=== PATIENT | female | born 1945 | race Caucasian/White ===

== ENCOUNTER 2018-01-27 09:24 | Day surgery (SDC) | payer MEDICARE, OTHER ==
[~2018-01-27] VITALS: Ht 160 cm; Wt 173.7 kg
[~2018-01-27 09:24] MED LIST: ACULAR5 ML BOTHEYES; ALBU90OI6 PO; AMLO10 PO; ANAS1 PO; ASPI81CH PO; ASPI81EC PO; ATEN50 PO; AZIT500 PO; Acidophilus La100 GM PO; Budeprion Xl300 MG PO; CALCAVITDA PO; CARB50 PO; CELE200 PO; CYAN500 PO; DESV50 PO; DOXA1 PO; DOXA2 PO; ERGO400 PO; EZET10 PO; FENT100TP TOP; FENT50TP TOP; FENT75TP TOP; FERR325 PO; FISH1000 PO; FLUT.05NI; FOLI400 PO; FURO20 PO; Fish Oil 1,0001 EAC3 PO; Flovent 110 MCG12 GM; GABA300 PO; GABA600 PO; HYDACE10B PO; LANS30EC PO; LECITHIN PO; LEVSOD125 PO; LEVSOD88 PO; LISI20 PO; LOVA40 PO; LUMIGAN2.5 ML BOTHEYES; MEGE40T PO; METF500C PO; METO50ER PO; METPRE4DP; MULVITA PO; Norco 10-325 T1 EACH PO; OXYACE5T PO; OYSTER SHELL C1 EAC4 PO; Omeprazole20 M1 PO; PIOG45 PO; POTA10T PO; PYRI100 PO; RESTASIS MULTI5.5 ML BOTHEYES; Systane 0.3-0.1 EACH OP; UBID10 PO; UBID100 PO; VENL75ER PO; VITAMIN B122500 MC1 PO; ZINC15 PO
== END 2018-01-27 23:05 | disposition home or self-care (01) ==
LOC: ORSCMMR 09:24 → ORD 10:15 → ORSCMMR 10:30 → ORD 10:30 → ORSCMMR 23:05
PROVIDERS: Surgery
PROC: 0DB48ZX Excision of Esophagogastric Junction, Via Natural or Artificial Opening Endoscopic, Diagnostic (ICD-10-PCS; principal; 2018-01-27 10:30)
PROC: 0DBL8ZX Excision of Transverse Colon, Via Natural or Artificial Opening Endoscopic, Diagnostic (ICD-10-PCS; principal; 2018-01-27 10:30)
PROC: 0DB68ZX Excision of Stomach, Via Natural or Artificial Opening Endoscopic, Diagnostic (ICD-10-PCS; principal; 2018-01-27 10:30)
PROC: 0DBK8ZX Excision of Ascending Colon, Via Natural or Artificial Opening Endoscopic, Diagnostic (ICD-10-PCS; principal; 2018-01-27 10:30)
DX: Z86.010 Personal history of colon polyps (principal); K29.70 Gastritis, unspecified, without bleeding; D12.2 Benign neoplasm of ascending colon; D12.3 Benign neoplasm of transverse colon; K64.8 Other hemorrhoids; K57.30 Diverticulosis of large intestine without perforation or abscess without bleeding; K21.9 Gastro-esophageal reflux disease without esophagitis; Z12.11 Encounter for screening for malignant neoplasm of colon; Z87.891 Personal history of nicotine dependence; E11.9 Type 2 diabetes mellitus without complications; I10 Essential (primary) hypertension; E78.5 Hyperlipidemia, unspecified; E78.00 Pure hypercholesterolemia, unspecified; E03.9 Hypothyroidism, unspecified; E66.01 Morbid (severe) obesity due to excess calories; Z68.44 Body mass index [BMI] 60.0-69.9, adult; Z79.82 Long term (current) use of aspirin; Z79.899 Other long term (current) drug therapy
CPT/HCPCS: 82947; 88305; 88342; J2250; J3010; J7120

== ENCOUNTER 2019-02-01 12:15 | Day surgery (SDC) | payer MEDICARE, OTHER ==
[~2019-02-01] VITALS: Ht 154.9 cm; Wt 153.5 kg
[~2019-02-01 12:15] MED LIST changes: +Aspirin EC81 MG PO; +Fentanyl1 EAC2 TOP; +Norvasc10 MG PO
== END 2019-02-01 15:39 | disposition home or self-care (01) ==
LOC: ORSCSDS 12:15
PROVIDERS: Orthopaedic Surgery
PROC: 01N54ZZ Release Median Nerve, Percutaneous Endoscopic Approach (ICD-10-PCS; principal; 2019-02-01 13:30)
DX: G56.02 Carpal tunnel syndrome, left upper limb (principal); I10 Essential (primary) hypertension; E11.9 Type 2 diabetes mellitus without complications; J44.9 Chronic obstructive pulmonary disease, unspecified; G47.33 Obstructive sleep apnea (adult) (pediatric); Z87.891 Personal history of nicotine dependence; K21.9 Gastro-esophageal reflux disease without esophagitis; E66.01 Morbid (severe) obesity due to excess calories; Z68.43 Body mass index [BMI] 50.0-59.9, adult; Z79.899 Other long term (current) drug therapy; Z79.82 Long term (current) use of aspirin
CPT/HCPCS: 82947; J0690; J2250; J7120

== ENCOUNTER → 2019-03-05 | Outpatient (CLI) | payer MEDICARE, OTHER | END | disposition home or self-care (01) | LOC: LAB EV 15:45 → LAB SHORT 15:45 | DX: R35.0 Frequency of micturition (principal) | CPT/HCPCS: 87077; 87086; 87186 ==

== ENCOUNTER → 2019-04-09 | Outpatient (CLI) | payer MEDICARE, OTHER | END | disposition home or self-care (01) | LOC: LAB → LAB SHORT 04-09 18:50 → LAB FUT 04-09 18:50 | DX: R30.9 Painful micturition, unspecified (principal) | CPT/HCPCS: 87086 ==

== ENCOUNTER → 2020-06-16 | Outpatient (CLI) | payer MEDICARE, OTHER ==
[2020-06-16 15:01] LABS: Source, Urine Clean Catch
[2020-06-16 16:48] LABS: Appearance, Urine Clear (Clear); Bilirubin, Urine Neg (Neg); Blood, Urine Neg (Neg); Color, Urine Yellow (P-Yellow); Glucose Qualitative, Urine Neg (Neg); Ketones, Urine Neg (Neg); Leukocyte Esterase, Urine Neg (Neg); Nitrite, Urine Neg (Neg); Protein, Urine Neg (Neg); Specific Gravity, Urine 1.015 (1.003-1.022); Urobilinogen, Urine NORM (Normal)
== END ==
LOC: LAB SHORT 14:58
PROVIDERS: Physician Assistant
DX: N39.0 Urinary tract infection, site not specified (principal)
CPT/HCPCS: 81003

== ENCOUNTER → 2020-07-17 | Outpatient (CLI) | payer MEDICARE, OTHER ==
[2020-07-17 13:03] LABS: Appearance, Urine Clear (Clear); Bilirubin, Urine Neg (Neg); Blood, Urine Neg (Neg); Color, Urine Yellow (P-Yellow); Glucose Qualitative, Urine Neg (Normal); Ketones, Urine Neg (Neg); Leukocyte Esterase, Urine Neg (Neg); Nitrite, Urine Neg (Neg); Protein, Urine Neg (Neg); Urobilinogen, Urine NORM (Normal)
== END | disposition home or self-care (01) ==
LOC: LAB EV 02:35
PROVIDERS: Physician Assistant
DX: R39.15 Urgency of urination (principal)
CPT/HCPCS: 81003; 87077; 87086; 87186

== ENCOUNTER → 2020-09-05 | Outpatient (CLI) | payer MEDICARE, OTHER | END | disposition home or self-care (01) | LOC: LAB EV 17:36 → LAB SHORT 17:36 | DX: L03.011 Cellulitis of right finger (principal) | CPT/HCPCS: 87070; 87075; 87205 ==

== ENCOUNTER 2023-01-13 11:00 | Day surgery (SDC) | payer MEDICARE, OTHER ==
[~2023-01-13] VITALS: Ht 154.9 cm; Wt 149.5 kg
[2023-01-13] MEDS ORDERED: GEMTESA75 MG PO (12:02)
[2023-01-13] MEDS ORDERED: TOPI50 PO (12:03)
--- NOTE | 2023-01-13 12:15 | NUR ---
01/13/23 1215 Melvi Velasquez [address] PL[address]GET AT 1200
[2023-01-13 13:59] VITALS: BP 140/80
== END 2023-01-13 14:00 | disposition home or self-care (01) ==
LOC: ORSCSDS 11:00
PROVIDERS: Ophthalmology
PROC: 08RJ3JZ Replacement of Right Lens with Synthetic Substitute, Percutaneous Approach (ICD-10-PCS; principal; 2023-01-13 13:00)
DX: E11.36 Type 2 diabetes mellitus with diabetic cataract (principal); H25.11 Age-related nuclear cataract, right eye; G47.33 Obstructive sleep apnea (adult) (pediatric); I10 Essential (primary) hypertension; F32.A Depression, unspecified; R32 Unspecified urinary incontinence; E78.5 Hyperlipidemia, unspecified; R60.0 Localized edema; K21.9 Gastro-esophageal reflux disease without esophagitis; E66.01 Morbid (severe) obesity due to excess calories; Z68.44 Body mass index [BMI] 60.0-69.9, adult; Z79.899 Other long term (current) drug therapy
CPT/HCPCS: 82947; J2250; J3010; J3301; J7040; V2632

== ENCOUNTER 2023-01-27 11:37 | Day surgery (SDC) | payer MEDICARE, OTHER | END 2023-01-27 13:52 | disposition home or self-care (01) | LOC: ORSCSDS 11:37 | PROC: 08RK3JZ Replacement of Left Lens with Synthetic Substitute, Percutaneous Approach (ICD-10-PCS; principal; 2023-01-27) | DX: E11.36 Type 2 diabetes mellitus with diabetic cataract (principal); H25.12 Age-related nuclear cataract, left eye; Z96.1 Presence of intraocular lens; G47.33 Obstructive sleep apnea (adult) (pediatric); K21.9 Gastro-esophageal reflux disease without esophagitis; E66.01 Morbid (severe) obesity due to excess calories; Z68.44 Body mass index [BMI] 60.0-69.9, adult; Z79.899 Other long term (current) drug therapy ==

== ENCOUNTER 2023-04-08 19:32 | Inpatient (IN) | payer MEDICARE, OTHER ==
[~2023-04-08] VITALS: Ht 154.9 cm; Wt 153.1 kg
[~2023-04-08 19:32] MED LIST changes: +GEMTESA75 MG PO; +TOPI50 PO
[2023-04-08 20:39] LABS: Source, Urine Straight Cath
[2023-04-08 21:09] LABS: Bilirubin, Urine Neg (Neg); Blood, Urine 2+ (Neg); Glucose Qualitative, Urine Neg (Neg); Ketones, Urine Neg (Neg); Leukocyte Esterase, Urine 3+ (Neg); Nitrite, Urine Neg (Neg); Protein, Urine 2+ (Neg); Urobilinogen, Urine NORM (Normal)
[2023-04-08 21:22] LABS: Appearance, Urine Hazy (Clear); Color, Urine Yellow (P-Yellow)
[2023-04-08 21:23] LABS: Bacteria Mod /hpf; Squamous Epithelial Cells Rare /hpf (Few)
[2023-04-08 21:47] LABS: BASOPHILS ABSOLUTE AUTO 0.03 K/mm3 (0.00-0.23); BASOPHILS PERCENT AUTO 0 % (0-2); EOSINOPHILS ABSOLUTE AUTO 0.09 K/mm3 (0.00-0.68); EOSINOPHILS PERCENT AUTO 1 % (0-6); Hematocrit 39.4 % (33.0-51.0); Hemoglobin 12.6 g/dL (11.5-16.0); IMMATURE GRAN ABSOLUTE AUTO 0.03 K/mm3 (0.00-0.10); IMMATURE GRAN PERCENT AUTO 0 % (0-1); LYMPHOCYTES ABSOLUTE AUTO 0.74 K/mm3 (0.84-5.20); LYMPHOCYTES PERCENT AUTO 8 % (21-46); MONOCYTES ABSOLUTE AUTO 0.55 K/mm3 (0.16-1.47); MONOCYTES PERCENT AUTO 6 % (4-13); Mean Corpuscular Volume 94 fL (80-100); Mean Platelet Volume 9.4 fL (9.1-12.4); NEUTROPHILS ABSOLUTE AUTO 7.41 K/mm3 (1.96-9.15); NEUTROPHILS PERCENT AUTO 84 % (41-73); Platelet Count 179 K/mm3 (150-400); RDW Coefficient Variation 13.7 % (11.7-14.2); RDW Standard Deviation 47.3 fL (35.1-46.3); White Blood Cell Count 8.85 K/mm3 (4.00-11.30)
[2023-04-08 22:09] LABS: Albumin/Globulin Ratio 0.4 (0.8-1.8); Bilirubin, Total 0.7 mg/dL (0.1-1.0); Calcium, Blood 8.5 mg/dL (8.5-10.1); Creatinine, Blood 1.24 mg/dL (0.40-1.00); Globulin, Blood 5.2 g/dL (2.2-4.0); Potassium, Blood 3.7 mmol/L (3.5-5.5); Total Protein, Blood 7.2 g/dL (6.4-8.2)
[2023-04-09 00:34] VITALS: BP 125/76
--- NOTE | 2023-04-09 02:18 | NUR ---
PT ARRIVED AT THE FLOOR AT 0015. PT TRANSFERED WITH ASSISTANCE FROM 5 CAREGIVERS USING THE SLIDE SHEET. PT ADMITTED FOR UTI AND INCREASED WEAKNESS. PT PLEASANT AND COOPERATIVE WITH CARE PROVIDED, A&O x4. VSS, PT ON RA. RESP RATE EVEN AND UNLABORED. PT W/C BOUND AT BASELINE. SKIN ASSESSMENT COMPLETED, DRY LOWER EXTREMITIES DARK PURPLE VENOUS INSUFFICIENCY, POOR CIRCULATION. NO OPEN WOUNDS/SORES NOTED. REDNESS TO PANNUS AND GROIN, AREA WAS CLEANED AND A TOWEL WAS PLACED TO PREVENT SKIN BREAKDOWN AND IRRITATION. CALL LIGHT WITHIN REACH, WCTM.
[2023-04-09 05:18] LABS: Hematocrit 38.4 % (33.0-51.0); Hemoglobin 12.8 g/dL (11.5-16.0); Mean Corpuscular HGB 30.5 pg (26.0-34.0); Mean Corpuscular HGB Conc 33.3 g/dL (31.5-36.5); Mean Corpuscular Volume 91 fL (80-100); RDW Coefficient Variation 13.7 % (11.7-14.2); RDW Standard Deviation 46.3 fL (35.1-46.3); White Blood Cell Count 8.97 K/mm3 (4.00-11.30)
[2023-04-09 06:01] LABS: BAND PERCENT MAN 20 % (0-8); BASOPHILS PERCENT MAN 0 % (0-2); EOSINOPHILS PERCENT MAN 0 % (0-6); LYMPHOCYTES ABSOLUTE MAN 0.71 K/mm3 (0.84-5.20); LYMPHOCYTES PERCENT MAN 8 % (21-46); NEUTROPHILS ABSOLUTE MAN 7.26 K/mm3 (1.96-9.15); SEG NEUTROPHILS PERCENT MAN 61 % (41-73); TOTAL CELLS COUNTED 100
[2023-04-09 06:02] LABS: MONOCYTES ABSOLUTE MAN 0.98 K/mm3 (0.16-1.47); MONOCYTES PERCENT MAN 11 % (4-13)
[2023-04-09 06:03] LABS: Mean Platelet Volume 10.4 fL (9.1-12.4); Platelet Count 166 K/mm3 (150-400)
[2023-04-09 08:24] VITALS: BP 138/73
[2023-04-09 10:29] LABS: Albumin, Blood 2.2 g/dL (3.4-5.0); Albumin/Globulin Ratio 0.4 (0.8-1.8); Bilirubin, Total 0.8 mg/dL (0.1-1.0); Bun/Creatinine Ratio 24.3 (12.0-20.0); Calcium, Blood 8.9 mg/dL (8.5-10.1); Creatinine, Blood 1.11 mg/dL (0.40-1.00); Globulin, Blood 4.9 g/dL (2.2-4.0); Potassium, Blood 4.1 mmol/L (3.5-5.5); Total Protein, Blood 7.1 g/dL (6.4-8.2)
[2023-04-09 16:00] VITALS: BP 110/70
--- NOTE | 2023-04-09 18:36 | NUR ---
SHIFT SUMMARY PER TELE, ST ELEVATION IS PRESENT, BUT NO SIGNIFICANT CHANGE FROM ADMIT. CALL PLACED TO EVENING MD, SHE REQUESTED EKG NOW. PATIENT IS ALERT AND ORIENTED, ABLE TO MAKE HER NEEDS KNOWN. CPAP SET UP AT BEDSIDE, RT FOLLOWING. PATIENT WAS ABLE TO WORK WITH PHYSICAL THERAPY, THEY ARE CURRENTLY RECOMMENDING SNF. PATIENT IS AGREEABLE. BED IS LOW AND LOCKED, CALL LIGHT WITHIN REACH, WILL CONT TO MONITOR AND REPORT OFF TO NOC RN.
[2023-04-09 20:01] VITALS: BP 123/56
[2023-04-10] VITALS (15 sets, daily range): BP systolic 72–154; BP diastolic 35–131
--- NOTE | 2023-04-10 05:59 | NUR ---
SHIFT SUMMARY PATIENT A/Ox4, PLEASANT AFFECT. DENIES PAIN NOR DISCOMFORT. DECLINED TO USE CPAP THIS SHIFT. STATES THAT SHE DOES NOT USE HERS AT HOME EITHER. VSS, SpO2 95% ON 2L NC. DENIES SOB/DIFFICULTY BREATHING. ABOUT 03:15, PATIENT WAS OBSERVED TO BE AWAKE ENGAGED IN SELF-DIALOG OF INCOHERENT, WORD SALAD, SLURRED SPEECH. THIS RN AND VENDING ROUTE DRIVER ASSESSED PATIENT. NO SIGNIFICANT CHANGE IN VS, HF=[id number]. SPEECH SLOWLY CLEARING UP PATIENT WAS ENCOURAGED TO CONVERSE. ON-CALL PROVIDER NOTIFIED OF CHANGE IN LOC/AMS. PER PROVIDER, WILL CLOSELY MONITOR AND REASSESS IN 1HR. UPON REASSESSMENT, NO CHANGE IN VS, SPEECH WAS CLEAR. CONTINUES TO DISPLAY INTERMITTENT CONFUSION MORE OR LESS SIMILAR TO SUN-DOWNING/UTI LIKE IMPAIRMENT. SLOWLY RETURNING TO BASELINE AT THIS TIME, IN NO ACUTE DISTRESS. WILL REPORT TO ONCOMING SHIFT TO F/U WITH PRIMARY.
[2023-04-10 06:25] LABS: BASOPHILS ABSOLUTE AUTO 0.05 K/mm3 (0.00-0.23); BASOPHILS PERCENT AUTO 1 % (0-2); EOSINOPHILS ABSOLUTE AUTO 0.23 K/mm3 (0.00-0.68); EOSINOPHILS PERCENT AUTO 3 % (0-6); Hematocrit 40.7 % (33.0-51.0); Hemoglobin 12.4 g/dL (11.5-16.0); IMMATURE GRAN PERCENT AUTO 1 % (0-1); LYMPHOCYTES ABSOLUTE AUTO 1.05 K/mm3 (0.84-5.20); LYMPHOCYTES PERCENT AUTO 12 % (21-46); MONOCYTES ABSOLUTE AUTO 0.95 K/mm3 (0.16-1.47); MONOCYTES PERCENT AUTO 11 % (4-13); Mean Corpuscular HGB 30.1 pg (26.0-34.0); Mean Corpuscular HGB Conc 30.5 g/dL (31.5-36.5); Mean Corpuscular Volume 99 fL (80-100); Mean Platelet Volume 9.6 fL (9.1-12.4); NEUTROPHILS ABSOLUTE AUTO 6.31 K/mm3 (1.96-9.15); NEUTROPHILS PERCENT AUTO 73 % (41-73); Platelet Count 209 K/mm3 (150-400); RDW Coefficient Variation 13.7 % (11.7-14.2); RDW Standard Deviation 50.1 fL (35.1-46.3); Red Blood Cell Count 4.12 M/mm3 (3.80-5.20); White Blood Cell Count 8.69 K/mm3 (4.00-11.30)
[2023-04-10 06:46] LABS: Albumin, Blood 2.4 g/dL (3.4-5.0); Anion Gap 3 mmol/L (6-16); Blood Urea Nitrogen 32 mg/dL (8-24); Bun/Creatinine Ratio 23.5 (12.0-20.0); CO2, Blood 33 mmol/L (21-32); Chloride, Blood 106 mmol/L (98-108); Creatinine, Blood 1.36 mg/dL (0.40-1.00); Glomerular Filtration Rate 40 (60-); Glucose, Blood 106 mg/dL (70-99); Phosphorus, Blood 4.8 mg/dL (2.5-4.9); Potassium, Blood 3.8 mmol/L (3.5-5.5); Sodium, Blood 142 mmol/L (136-145)
--- NOTE | 2023-04-10 11:25 | NUR ---
LATE ENTRY/START OF SHIFT: PT UNRESPONSIVE EXCEPT TO PAINFUL STIMULI. ON 3 L'S O2 WITH SATS >90%. PER NOC RN REPORT PT REFUSED TO WEAR C-PAP THROUGH THE NIGHT & HAD A PERIOD OF AMS & SLURRING OF HER WORDS. PLACED PT BACK ON HER C-PAP WITH 3 L'S O2 BLEED IN, SATS REMAINED >90%. NOTIFIED DR. PHIPPS OF PT CHANGE, HERE, ORDERS RECEIVED & DONE.
--- NOTE | 2023-04-10 12:13 | NUR ---
PLACED CALL TO DR. PHIPPS, NOTIFIED MD OF PT'S WORSENING LE MOTTLING. VS DONE, SBP 109, RR 20, ALL OTHER VS NML.PT REMAINS ON C-PAP WITH 2 L'S BLEED IN. PT ALSO BARELY RESPONSIVE, WILL OPEN EYES TO TACTILE & PAINFUL STIMULI, DOES NOT TRACK & UNABLE TO FOLLOW DIRECTIONS. IS ALSO UNABLE TO REMAIN AWAKE. MD HERE, ORDERS RECEIVED. TRANSFER TO ICU BED 11.
[2023-04-10 12:27] LABS: BASOPHILS ABSOLUTE AUTO 0.05 K/mm3 (0.00-0.23); BASOPHILS PERCENT AUTO 1 % (0-2); EOSINOPHILS ABSOLUTE AUTO 0.15 K/mm3 (0.00-0.68); EOSINOPHILS PERCENT AUTO 2 % (0-6); Hematocrit 44.3 % (33.0-51.0); Hemoglobin 13.1 g/dL (11.5-16.0); IMMATURE GRAN ABSOLUTE AUTO 0.13 K/mm3 (0.00-0.10); IMMATURE GRAN PERCENT AUTO 2 % (0-1); LYMPHOCYTES ABSOLUTE AUTO 0.81 K/mm3 (0.84-5.20); LYMPHOCYTES PERCENT AUTO 10 % (21-46); MONOCYTES ABSOLUTE AUTO 0.68 K/mm3 (0.16-1.47); MONOCYTES PERCENT AUTO 8 % (4-13); Mean Corpuscular HGB 30.1 pg (26.0-34.0); Mean Corpuscular HGB Conc 29.6 g/dL (31.5-36.5); Mean Corpuscular Volume 102 fL (80-100); Mean Platelet Volume 9.4 fL (9.1-12.4); NEUTROPHILS ABSOLUTE AUTO 6.67 K/mm3 (1.96-9.15); NEUTROPHILS PERCENT AUTO 79 % (41-73); Platelet Count 223 K/mm3 (150-400); RDW Coefficient Variation 13.8 % (11.7-14.2); RDW Standard Deviation 52.4 fL (35.1-46.3); Red Blood Cell Count 4.35 M/mm3 (3.80-5.20); White Blood Cell Count 8.49 K/mm3 (4.00-11.30)
[2023-04-10 12:30] LABS: PCO2 Arterial 84.1 mmHg (35-45); PO2 Arterial 80.7 mmHg (80-100); pH Blood Arterial 7.19 (7.35-7.45)
[2023-04-10 12:55] LABS: Albumin, Blood 2.5 g/dL (3.4-5.0); Albumin/Globulin Ratio 0.5 (0.8-1.8); Bilirubin, Total 0.3 mg/dL (0.1-1.0); Bun/Creatinine Ratio 20.5 (12.0-20.0); Calcium, Blood 9.1 mg/dL (8.5-10.1); Creatinine, Blood 1.56 mg/dL (0.40-1.00); Globulin, Blood 5.4 g/dL (2.2-4.0); Magnesium, Blood 2.2 mg/dL (1.6-2.4); Phosphorus, Blood 5.4 mg/dL (2.5-4.9); Potassium, Blood 4.2 mmol/L (3.5-5.5); Total Protein, Blood 7.9 g/dL (6.4-8.2)
--- NOTE | 2023-04-10 13:11 | NUR ---
TRANSFER TO ICU PT TRANSFERED TO ICU 11 VIA BED FROM 355 AT 1250. PT IS SOMNOLENT, BUT AROUSEABLE TO VERBAL AND NOXIOUS STIMULI. PT SPEECH IS MUMBLED AND NONSENSICAL. PT RESTLESS WHILE AWAKE. PT TRANSFERED TO ICU BED AND PLACED ON BIPAP 16/8, FIO2 21%. VITAL SIGNS STABLE AT THIS TIME. PT ABLE TO SQUEEZE HAND UPON COMMAND. PT NODS HEAD TO SOME QUESTIONS. PT WITH EXTENSIVE REDNESS NOTED TO PANNUS, PERIA AREA, AND UPPER POSTERIOR LEGS. PHOTOS TAKEN, MEPILEX PLACED. PT WITH PURPLE/BROWN DISCOLORATION TO LOWER LEGS AND ANKLES. MOTTLING NOTED TO BLE'S UP TO MID THIGHS. PT WITH PIV TO RIGHT SHOULDER THAT IS INFILTRATED UPON ASSESSMENT. PT FAMILY MEMBER AT BEDSIDE AT THIS TIME AND UPDATED TO PLAN OF CARE. WILL CONTINUE TO MONITOR.
--- NOTE | 2023-04-10 13:51 | NUR ---
Spoke with vocational auto body instructor Alysha and discussed case. Pt being transfered to ICU do to change in condition. Pt resting in bed in ICU room receiving care from TRINH Tobar. Pt's nephew Eduardo at bedside. Spoke with Eduardo outside of Pt's room. Eduardo reports knowing very little regarding Pt. He reports his sister Valerie is on her way in who can answer further questions. Eduardo also reports Pt has a daughter Lacie and a sister Valerie. Palliative Care will F/U at a later time.
[2023-04-10 15:54] LABS: PCO2 Arterial 67.9 mmHg (35-45); PO2 Arterial 83.9 mmHg (80-100)
[2023-04-10 15:55] LABS: pH Blood Arterial 7.27 (7.35-7.45)
--- NOTE | 2023-04-10 17:03 | NUR ---
CT SCAN PT TAKEN TO CT FOR PE STUDY. SCAN UNABLE TO BE COMPLETED DUE TO PT'S BODY HABITUS AND BEING UNABLE TO FIT IN CT MACHINE. DR PHIPPS NOTIFIED. ORDERS RECIEVED FOR BILAT LOWER EXTREMITY DVT STUDY. NO ACUTE CHANGES IN PT CONDITION.
--- NOTE | 2023-04-10 17:52 | NUR ---
SHIFT SUMMARY NO ACUTE CHANGES THIS AFTERNOON. PT HAS REMAINED ON BIPAP 07/05, FIO2 28%. PT RESTING QUIETLY, BUT IS EASILY AROUSEABLE TO VERBAL STIMULI. PT MUMBLES AND SPEECH IS NONSENSICAL, BUT PT IS ABLE TO ANSWER SIMPLE QUESTIONS. VITAL SIGNS STABLE. POWERGLIDE PLACED TO VALERIA, SALINE LOCKED. PT WITH ATTENDS IN PLACE. WOUNDS TO COCCYX/UPPER POSTERIOR THIGHS REMAIN UNCHANGED. MULTIPLE FAMILY MEMBERS IN TO SEE PT THIS AFTERNOON. WILL CONTINUE TO MONITOR AND REPORT OFF TO ONCOMING RN.
--- NOTE | 2023-04-10 19:30 | NUR ---
ASSUMED CARE OF PT AT 1915 BEDSIDE REPORT RECEIVED FROM ANTHONY Ross RN. PT IS CURRENTLY ON BIPAP, MENTATION IMPROVING, PT TALKING WITH RT AT BEDSIDE DURING REPORT ASKING FOR A BREAK FROM THE MASK. SR/SINUS ARRHTHMIA W/BBB. HR 70'S TO 80'S. BP STABLE. ON CONTINUOUS CARDIAC MONITORING. SPO2 96% ON BIPAP FIO2 25%. LUNGS CLEAR IN UPPER LOBES, DIMINISHED BASES BILATERALLY. SHALLOW BREATHING DESPITE BIPAP. ENCOURAGED PULMONARY HYGIENE. HAS BEEN NPO DUE TO SOMNOLENCE AND NEED FOR BIPAP BUT DOES HAVE DIET ORDERED AND HAS NO HISTORY OF ASPIRATION/TROUBLE SWALLOWING. DENIES NAUSEA. INCONTINENT OF URINE, BRIEF IN PLACE, CURRENTLY DRY. SKIN UNCHANGED, RECENT PHOTOS IN CHART. POWERGLIDE TO LEFT UPPER ARM, SL. POC ONGOING.
--- NOTE | 2023-04-10 21:23 | NUR ---
1999 BIPAP REMOVED PT A/O X4, FOLLOWING ALL COMMANDS. STATES SHE IS HUNGRY. REMOVED BIPAP, PT ON ROOM AIR. O2 SATS 92%. SWALLOWING TRIALED AND PT HAD NO ISSUES. PO MEDS GIVEN. DINNER TRAY GIVEN. PT VERBALIZES APPRECIATION. CALL LIGHT IN PLACE. CELL PHONE PROVIDED, PT CALLING FAMILY MEMBERS TO UPDATE THEM. POC ONGOING.
[2023-04-10 22:11] LABS: PCO2 Arterial 56.7 mmHg (35-45); PO2 Arterial 80.2 mmHg (80-100); pH Blood Arterial 7.33 (7.35-7.45)
[2023-04-10 22:47] LABS: Albumin, Blood 2.1 g/dL (3.4-5.0); Anion Gap 6 mmol/L (6-16); Blood Urea Nitrogen 35 mg/dL (8-24); Bun/Creatinine Ratio 24.8 (12.0-20.0); CO2, Blood 30 mmol/L (21-32); Calcium, Blood 8.7 mg/dL (8.5-10.1); Chloride, Blood 105 mmol/L (98-108); Creatinine, Blood 1.41 mg/dL (0.40-1.00); Glomerular Filtration Rate 38 (60-); Glucose, Blood 216 mg/dL (70-99); Phosphorus, Blood 3.3 mg/dL (2.5-4.9); Sodium, Blood 141 mmol/L (136-145)
--- NOTE | 2023-04-10 23:00 | NUR ---
DR. MORGAN TO BEDSIDE AT 2200 STAT RENAL PANEL, STAT ABG AND STAT CXR ORDERED BY . COMPLETED AND RESULTS CALLED TO DR. MORGAN'S CELL AT 2255. ORDERS RECEIVED TO START NS AT 50ML/HR AND SODIUM BICARB 650MG TABLET BY MOUTH DAILY TO START NOW. PATIENT NOTIFIED OF RESULTS AND NEW ORDERS. POC ONGOING.
[2023-04-11] VITALS (18 sets, daily range): BP systolic 113–182; BP diastolic 57–139
--- NOTE | 2023-04-11 06:30 | NUR ---
SHIFT SUMMARY PT REMAINS A/O, DROWSY AT TIMES. BIPAP ON FOR 4-5 HOURS LAST NOC. PT ASKED FOR A BREAK AT 0500. O2 SAT 94% ON 3L NC. LUNGS CTA, DIMINISHED BASES, BREATHING SHALLOW. ENCOURAGED DEEP BREATHING AND COUGH. DENIES NAUSEA. TOLERATED PO INTAKE WELL. INCONTINENT OF URINE, ABLE TO COMMUNICATE TO RN WHEN SHE FEELS "WET" INCONTINENT X3 THIS SHIFT. SKIN UNCHANGED, PHOTOS IN CHART. POWERGLIDE TO LEFT UPPER ARM, DOES NOT WITHDRAW BLOOD. NS INFUSING AT 50 ML/HR. NO FAMILY AT BEDSIDE. PT HAS BEEN UPDATING FAMILY VIA CELL PHONE. POC ONGOING.
[2023-04-11 06:40] LABS: BASOPHILS ABSOLUTE AUTO 0.03 K/mm3 (0.00-0.23); BASOPHILS PERCENT AUTO 0 % (0-2); EOSINOPHILS ABSOLUTE AUTO 0.01 K/mm3 (0.00-0.68); EOSINOPHILS PERCENT AUTO 0 % (0-6); Hematocrit 38.6 % (33.0-51.0); Hemoglobin 11.8 g/dL (11.5-16.0); IMMATURE GRAN ABSOLUTE AUTO 0.15 K/mm3 (0.00-0.10); IMMATURE GRAN PERCENT AUTO 2 % (0-1); LYMPHOCYTES ABSOLUTE AUTO 0.74 K/mm3 (0.84-5.20); LYMPHOCYTES PERCENT AUTO 11 % (21-46); MONOCYTES ABSOLUTE AUTO 0.46 K/mm3 (0.16-1.47); MONOCYTES PERCENT AUTO 7 % (4-13); Mean Corpuscular HGB Conc 30.6 g/dL (31.5-36.5); Mean Corpuscular Volume 98 fL (80-100); Mean Platelet Volume 9.6 fL (9.1-12.4); NEUTROPHILS ABSOLUTE AUTO 5.48 K/mm3 (1.96-9.15); NEUTROPHILS PERCENT AUTO 80 % (41-73); Platelet Count 229 K/mm3 (150-400); RDW Coefficient Variation 13.2 % (11.7-14.2); RDW Standard Deviation 47.8 fL (35.1-46.3); Red Blood Cell Count 3.93 M/mm3 (3.80-5.20); White Blood Cell Count 6.87 K/mm3 (4.00-11.30)
[2023-04-11 06:51] LABS: Albumin, Blood 2.2 g/dL (3.4-5.0); Anion Gap 3 mmol/L (6-16); Blood Urea Nitrogen 36 mg/dL (8-24); Bun/Creatinine Ratio 26.3 (12.0-20.0); CO2, Blood 33 mmol/L (21-32); Calcium, Blood 8.9 mg/dL (8.5-10.1); Chloride, Blood 105 mmol/L (98-108); Creatinine, Blood 1.37 mg/dL (0.40-1.00); Glomerular Filtration Rate 39 (60-); Glucose, Blood 114 mg/dL (70-99); Magnesium, Blood 2.1 mg/dL (1.6-2.4); Phosphorus, Blood 3.2 mg/dL (2.5-4.9); Potassium, Blood 4.1 mmol/L (3.5-5.5); Sodium, Blood 141 mmol/L (136-145)
--- NOTE | 2023-04-11 18:29 | NUR ---
TRANSFER/END OF SHIFT NOTE PT ARRIVED TO PCU1 AT 1540 FROM ICU. REPORT TAKEN FROM VIPUL TSANG. PT TRANSFERRED FROM ICU BED TO PCU BED VIA LIFT. PT A&OX4, TALKATIVE AND ABLE TO COMMUNICATE NEEDS WITH STAFF. HR 70'S, NSR ON TELEMETRY. SBP 120'S, DENIES CHEST PAIN/PRESSURE. SPO2 >95% ON 3L VIA NC. PT'S HOME CPAP AT BEDSIDE, ABLE TO USE WHILE SLEEPING PER RT. PT INCONTINENT OF URINE; PUREWICK PLACED FOR PT COMFORT PER PT REQUEST. BARRIER CREAM APPLIED TO BUTTOCKS D/T ABRASION/REDNESS. POWERGLIDE TO VALERIA, INFUSING NS AT 50 ML/HR PER EMAR. PT REPOSITIONED FREQUENTLY BY STAFF. NO FAMILY AT BEDSIDE AT THIS TIME. NO OTHER NEEDS AT THIS TIME, CALL LIGHT WITHIN REACH. BED IN LOWEST POSITION W/ ALARM ON. WILL REPORT TO ALEJANDRO DUFF RN.
[2023-04-12 00:59] VITALS: BP 128/67
[2023-04-12 03:24] VITALS: BP 151/79
--- NOTE | 2023-04-12 05:37 | NUR ---
SHIFT SUMMARY PT SLEPT OFF AND ON. A/O X 4, FOLLOWS ALL COMMANDS. HOME CPAP IN PLACE FROM [id number]. PT SLEPT WELL WITH IT ON. SHALLOW RESPIRATIONS, LUNGS CLEAR IN THE UPPER LOBES, DIMINSHED BASES BILATERALLY. ON 3 L NC WHEN OFF CPAP. SR, BP WNL. DENIES NAUSEA, HASN'T HAD A BM IN 2 DAYS, PT STATES THIS IS HER BASELINE. PUREWICK TO LOW SUCTION. CHANGED X1 THIS SHIFT. ADEQUATE UO. SKIN UNCHANGED. C/O PAIN IN BILAT KNEES, RELIEVED WITH MAIKOL DAVIDSON. POWERGLIDE TO LEFT UPPER ARM, NS INFUSING AT 50 ML/HR. NO FAMILY AT BEDSIDE, POC ONGOING
[2023-04-12 06:41] LABS: BASOPHILS ABSOLUTE AUTO 0.03 K/mm3 (0.00-0.23); BASOPHILS PERCENT AUTO 0 % (0-2); EOSINOPHILS ABSOLUTE AUTO 0.01 K/mm3 (0.00-0.68); EOSINOPHILS PERCENT AUTO 0 % (0-6); Hematocrit 37.9 % (33.0-51.0); Hemoglobin 11.8 g/dL (11.5-16.0); IMMATURE GRAN PERCENT AUTO 2 % (0-1); LYMPHOCYTES ABSOLUTE AUTO 1.03 K/mm3 (0.84-5.20); LYMPHOCYTES PERCENT AUTO 11 % (21-46); MONOCYTES ABSOLUTE AUTO 0.71 K/mm3 (0.16-1.47); MONOCYTES PERCENT AUTO 8 % (4-13); Mean Corpuscular HGB Conc 31.1 g/dL (31.5-36.5); Mean Corpuscular Volume 96 fL (80-100); NEUTROPHILS ABSOLUTE AUTO 7.21 K/mm3 (1.96-9.15); NEUTROPHILS PERCENT AUTO 79 % (41-73); Platelet Count 271 K/mm3 (150-400); RDW Coefficient Variation 13.3 % (11.7-14.2); RDW Standard Deviation 47.2 fL (35.1-46.3); Red Blood Cell Count 3.93 M/mm3 (3.80-5.20); White Blood Cell Count 9.19 K/mm3 (4.00-11.30)
[2023-04-12 07:07] LABS: Albumin, Blood 2.4 g/dL (3.4-5.0); Albumin/Globulin Ratio 0.5 (0.8-1.8); Bilirubin, Total 0.1 mg/dL (0.1-1.0); Bun/Creatinine Ratio 25.9 (12.0-20.0); Calcium, Blood 8.9 mg/dL (8.5-10.1); Creatinine, Blood 1.16 mg/dL (0.40-1.00); Globulin, Blood 4.6 g/dL (2.2-4.0); Magnesium, Blood 1.9 mg/dL (1.6-2.4); Phosphorus, Blood 2.3 mg/dL (2.5-4.9)
[2023-04-12 07:34] VITALS: BP 180/90
--- NOTE | 2023-04-12 11:07 | NUR ---
UPDATE THIS RN CALLED TO PT ROOM REGARDING CHANGE IN MENTATION. PT'S SPEECH BEGAN TO CHANGE WHILE HAVING A POWERGLIDE PLACED, NOTED TO BE SIMILAR TO WORD SALAD. SPEECH THEN BEGAN TO SLUR AND LETHARGY WAS NOTED. RT CALLED TO BEDSIDE SPO2 DROPPED TO 80'S. PT PLACED BACK ON HOME CPAP. REPOSITIONED IN BED, HEAD SUPPORTED TO IMPROVE SPO2 AND RESPIRATIONS. PT IS OBTUNDED AT THIS TIME, NOT VERBALLY RESPONDING TO MOST STIMULI. CONTACTED MD CAMPOVERDE. ORDERS RECEIVED FOR ABG. RT NOTIFIED TO DRAW.
[2023-04-12 11:40] VITALS: BP 133/71
[2023-04-12 11:40] LABS: PCO2 Arterial 53.7 mmHg (35-45); PO2 Arterial 86.4 mmHg (80-100); pH Blood Arterial 7.39 (7.35-7.45)
[2023-04-12 15:01] VITALS: BP 151/80
--- NOTE | 2023-04-12 16:52 | NUR ---
END OF SHIFT NOTE PT A&OX4 FOR MOST OF SHIFT, SEE PREVIOUS NOTE REGARDING CHANGE IN MENTATION MID-MORNING. FOLLOWING ALL COMMANDS AND CALLING APPROPRIATELY. HOME CPAP IN PLACE WHILE PT SLEEPING. ON 3L NC WHEN AWAKE W/ SPO2 >95%. HOB ELEVATED TO REDUCE SOB. HR 70-80'S, NSR. SBP 130-180'S, DENIES CHEST PAIN/PRESSURE. UP TO BSC W/ OCCUPATIONAL THERAPY; REQUIRED 3P STAFF ASSIST. 1 BM THIS SHIFT. PUREWICK DRAINING YELLOW URINE. PT REPOSITIONED FREQUENTLY T/O SHIFT. BED BATH COMPLETED. BILATERAL KNEE PAIN REPORTED, BENGAY APPLIED PER EMAR W/ RELIEF. POWERGLIDE TO KAYLEIGH INFUSING NS AT 50ML/HR PER EMAR. NO OTHER EVENTS. CALL LIGHT WITHIN REACH, BED IN LOWEST POSITION. WILL REPORT TO ONCOMING OMEGA RN.
--- NOTE | 2023-04-12 18:27 | NUR ---
HOME MEDICATIONS RT BRENT INFORMED THIS RN THAT SHE WITNESSED THE PT'S CAREGIVER, LOGAN, TAKING ALL HOME MEDICATIONS WITH HER WHEN SHE LEFT ICU PREVIOUSLY. PT ENDORSED THIS SAYING SHE REMEMBERED HER CAREGIVER TAKING THE MEDS WELL. LOGAN TO BEDSIDE THIS PM, STATED THAT SHE DID TAKE THE MEDICATIONS BACK TO PT'S HOME. [facility] HAS PT'S HOME NORCO AND TRAMADOL, RECEIPT IN CHART. THIS RN SENT PT'S EYEDROPS TO PHARMACY TO BE VERIFIED BUT WAS INFORMED THEY ARE AND CANNOT BE USED.
[2023-04-12 22:02] VITALS: BP 191/86
--- NOTE | 2023-04-12 22:48 | NUR ---
PHYSICIAN COMMUNICATION CONTACTED CLAIM INSPECTOR RESIDENT, DR CROUCH, TO NOTIFY HER THAT THE ONE TIME DOSE OF GI COCKTAIL THAT WAS ORDERED FOR THE PATIENT WAS NOT EFFECTIVE. DR CROUCH ORDERED A ONE TIME DOSE OF 40 MG PANTOPRAZOLE.
[2023-04-13] MEDS ORDERED: MIRALAX17 GM PO (00:04)
[2023-04-13 00:28] VITALS: BP 185/80
[2023-04-13 03:08] VITALS: BP 147/72
[2023-04-13 03:24] LABS: BASOPHILS ABSOLUTE AUTO 0.02 K/mm3 (0.00-0.23); BASOPHILS PERCENT AUTO 0 % (0-2); EOSINOPHILS PERCENT AUTO 0 % (0-6); Hematocrit 36.4 % (33.0-51.0); Hemoglobin 11.3 g/dL (11.5-16.0); IMMATURE GRAN ABSOLUTE AUTO 0.33 K/mm3 (0.00-0.10); IMMATURE GRAN PERCENT AUTO 5 % (0-1); LYMPHOCYTES ABSOLUTE AUTO 1.02 K/mm3 (0.84-5.20); LYMPHOCYTES PERCENT AUTO 15 % (21-46); MONOCYTES ABSOLUTE AUTO 0.51 K/mm3 (0.16-1.47); MONOCYTES PERCENT AUTO 8 % (4-13); Mean Corpuscular HGB 29.7 pg (26.0-34.0); Mean Corpuscular Volume 96 fL (80-100); Mean Platelet Volume 8.9 fL (9.1-12.4); NEUTROPHILS ABSOLUTE AUTO 4.88 K/mm3 (1.96-9.15); NEUTROPHILS PERCENT AUTO 72 % (41-73); Platelet Count 274 K/mm3 (150-400); RDW Coefficient Variation 13.7 % (11.7-14.2); RDW Standard Deviation 48.3 fL (35.1-46.3); White Blood Cell Count 6.76 K/mm3 (4.00-11.30)
[2023-04-13 04:18] LABS: Magnesium, Blood 1.9 mg/dL (1.6-2.4)
[2023-04-13 04:19] LABS: Albumin, Blood 2.3 g/dL (3.4-5.0); Albumin/Globulin Ratio 0.5 (0.8-1.8); Bilirubin, Total 0.2 mg/dL (0.1-1.0); Calcium, Blood 8.8 mg/dL (8.5-10.1); Creatinine, Blood 1.13 mg/dL (0.40-1.00); Globulin, Blood 4.2 g/dL (2.2-4.0); Phosphorus, Blood 1.7 mg/dL (2.5-4.9); Potassium, Blood 3.9 mmol/L (3.5-5.5); Total Protein, Blood 6.5 g/dL (6.4-8.2)
--- NOTE | 2023-04-13 05:30 | NUR ---
SHIFT SUMMARY PATIENT ALERT AND ORIENTED X4. PATIENT REPORTED HAVING GERD OVERNIGHT TO THE POINT OF HAVING NAUSEA AND VOMITING, MEDICATED PER EMAR. PATIENT WAS HYPERTENSIVE DURING THE FLAIR UP OF GERD, IT HAS STABILIZED THIS MORNING. PATIENT DENIES HAVING CHEST PAIN OR SHORTNESS OF BREATH. ON 3 LITERS NC WHILE AWAKE, WEARS HOME CPAP FOR SLEEP. WILL CONTINUE TO MONITOR. CALL LIGHT WITHIN REACH.
[2023-04-13 07:38] VITALS: BP 167/76
[2023-04-13 11:04] VITALS: BP 152/71
--- NOTE | 2023-04-13 17:52 | NUR ---
PT SUMMARY: PT REMAINED ALERT AND ORIENTED X3 ABLE TO MAKE NEEDS KNOWN, VITALS HRR SR 60-70'S, SBP 120-150'S, SATS ABOVE 90% ON RA WHEN AWAKE 2L OF O2 PRN, CPAP MACHINE AT BEDSIDE FOR SLEEP, AFEBRILE. PT ABLE TO WORK WITH OCCUPATIONAL THERAPIST THIS MORNING ABLE TO SIT ON THE SIDE OF THE BED. PT RECEIVED A BED BATH TODAY UP IN THE RECLINER FOR DINNER. DENIES ANY PAIN, REPOSITIONED FOR COMFORT. SYSTEMS OPERATOR WORKING ON GETTING HER TRILOGY MACHINE TO GO WITH HER TO SNF. PUREWICK IN PLACE DRAINING YELLOW TOVA URINE. NO OTHER ISSUES ENCOUNTERED, PT CALLS APPROPRIATELY WILL REPORT TO ONCOMING SHIFT
[2023-04-13 21:54] VITALS: BP 157/63
[2023-04-13 23:50] VITALS: BP 157/89
[2023-04-14 04:31] LABS: Hematocrit 36.8 % (33.0-51.0); Hemoglobin 11.8 g/dL (11.5-16.0); Mean Corpuscular HGB 30.3 pg (26.0-34.0); Mean Corpuscular HGB Conc 32.1 g/dL (31.5-36.5); Mean Corpuscular Volume 95 fL (80-100); Mean Platelet Volume 9.8 fL (9.1-12.4); Platelet Count 333 K/mm3 (150-400); RDW Coefficient Variation 13.8 % (11.7-14.2); RDW Standard Deviation 47.8 fL (35.1-46.3); Red Blood Cell Count 3.89 M/mm3 (3.80-5.20); White Blood Cell Count 6.66 K/mm3 (4.00-11.30)
[2023-04-14 05:03] LABS: Albumin, Blood 2.3 g/dL (3.4-5.0); Albumin/Globulin Ratio 0.5 (0.8-1.8); Bilirubin, Total 0.6 mg/dL (0.1-1.0); Bun/Creatinine Ratio 22.2 (12.0-20.0); Calcium, Blood 8.9 mg/dL (8.5-10.1); Creatinine, Blood 0.99 mg/dL (0.40-1.00); Globulin, Blood 4.4 g/dL (2.2-4.0); Phosphorus, Blood 2.2 mg/dL (2.5-4.9); Potassium, Blood 4.8 mmol/L (3.5-5.5); Total Protein, Blood 6.7 g/dL (6.4-8.2)
[2023-04-14 05:41] LABS: BAND PERCENT MAN 2 % (0-8); BASOPHILS PERCENT MAN 0 % (0-2); EOSINOPHILS PERCENT MAN 0 % (0-6); LYMPHOCYTES ABSOLUTE MAN 1.53 K/mm3 (0.84-5.20); LYMPHOCYTES PERCENT MAN 23 % (21-46); METAMYELOCYTE ABSOLUTE MAN 0.19 K/mm3 (0.00-0.00); METAMYELOCYTE PERCENT MAN 3 % (0-0); MONOCYTES ABSOLUTE MAN 0.33 K/mm3 (0.16-1.47); MONOCYTES PERCENT MAN 5 % (4-13); NEUTROPHILS ABSOLUTE MAN 4.59 K/mm3 (1.96-9.15); SEG NEUTROPHILS PERCENT MAN 67 % (41-73); TOTAL CELLS COUNTED 100
--- NOTE | 2023-04-14 06:30 | NUR ---
SHIFT SUMMARY PATIENT ALERT AND ORIENTED X4. HAD NO COMPLAINTS OF PAIN OR SHORTNESS OF BREATH. WORE HOME CPAP FOR SLEEP AND 2 LITERS O2 VIA NC NEEDED. VITAL SIGNS STABLE, SINUS RHYTHM ON TELE. NO ACUTE ISSUES NOTED OVERNIGHT. WILL CONTINUE TO MONITOR. CALL LIGHT WITHIN REACH.
[2023-04-14 07:37] VITALS: BP 163/80
--- NOTE | 2023-04-14 07:47 | NUR ---
Bedside report received this morning from TRINH Lucio. The pt declined OOB with lift to recliner for breakfast. State she just feels too tired for it. Asked if she felt more comfortable in chair (this was reported to me) and she said yes, and also understood that lift would be used for transfer, but she still declined, saying she wanted to do it later. She does appear sleepy, so CPAP was placed back on her and Na Phos infusion started, per Dr. Hyatt's orders. Noted blood pressure elevated. PT has no complaints this morning. Appears comfortable.
[2023-04-14 11:59] VITALS: BP 143/71
--- NOTE | 2023-04-14 14:43 | NUR ---
pt stood up to use the bedside commode; Had a BM and also voided at the same time. Purewick was replaced with a new clean device.
[2023-04-14 15:54] VITALS: BP 157/85
--- NOTE | 2023-04-14 16:00 | NUR ---
Pt requested bengay topical analgesic for her knees which are painful. she remains in the recliner at this time, says that it is comfortable.
--- NOTE | 2023-04-14 18:37 | NUR ---
Pt was given BenGay application on her right knee for relief of pain. She also said that ice helps, so an ice pack was also put on it. She continues to sit up in the recliner.
[2023-04-14 20:00] VITALS: BP 163/85
[2023-04-14 23:16] VITALS: BP 131/93
[2023-04-15 03:53] VITALS: BP 152/83
[2023-04-15 04:02] LABS: Hematocrit 37.5 % (33.0-51.0); Hemoglobin 11.8 g/dL (11.5-16.0); Mean Corpuscular HGB 29.8 pg (26.0-34.0); Mean Corpuscular HGB Conc 31.5 g/dL (31.5-36.5); Mean Corpuscular Volume 95 fL (80-100); Mean Platelet Volume 8.7 fL (9.1-12.4); Platelet Count 274 K/mm3 (150-400); RDW Coefficient Variation 13.8 % (11.7-14.2); RDW Standard Deviation 47.6 fL (35.1-46.3); Red Blood Cell Count 3.96 M/mm3 (3.80-5.20); White Blood Cell Count 6.08 K/mm3 (4.00-11.30)
[2023-04-15 04:33] LABS: Albumin, Blood 2.3 g/dL (3.4-5.0); Anion Gap 0 mmol/L (6-16); Blood Urea Nitrogen 21 mg/dL (8-24); Bun/Creatinine Ratio 20.2 (12.0-20.0); CO2, Blood 38 mmol/L (21-32); Calcium, Blood 8.8 mg/dL (8.5-10.1); Chloride, Blood 104 mmol/L (98-108); Creatinine, Blood 1.04 mg/dL (0.40-1.00); Glomerular Filtration Rate 55 (60-); Glucose, Blood 92 mg/dL (70-99); Sodium, Blood 142 mmol/L (136-145)
[2023-04-15 05:22] LABS: BASOPHILS PERCENT MAN 0 % (0-2); EOSINOPHILS PERCENT MAN 0 % (0-6); LYMPHOCYTES ABSOLUTE MAN 1.09 K/mm3 (0.84-5.20); LYMPHOCYTES PERCENT MAN 18 % (21-46); METAMYELOCYTE ABSOLUTE MAN 0.06 K/mm3 (0.00-0.00); METAMYELOCYTE PERCENT MAN 1 % (0-0); MONOCYTES ABSOLUTE MAN 0.66 K/mm3 (0.16-1.47); MONOCYTES PERCENT MAN 11 % (4-13); MYELOCYTE ABSOLUTE MAN 0.06 K/mm3 (0.00-0.00); MYELOCYTE PERCENT MAN 1 % (0-0); NEUTROPHILS ABSOLUTE MAN 4.19 K/mm3 (1.96-9.15); SEG NEUTROPHILS PERCENT MAN 69 % (41-73); TOTAL CELLS COUNTED 100
--- NOTE | 2023-04-15 05:37 | NUR ---
SHIFT SUMMARY NO ACUTE CHANGES THIS SHIFT. VSS. ON RA OR CPAP WHILE SLEEPING. MENTATION UNCHANGED. PT IN SR. POWERGLIDE PATENT. PT BEING TURNED BY STAFF BUT PATIENT FAIRLY HELPFUL WITH THIS. SHOWING IMPROVEMENT IN STRENGTH WITH ADL'S. STARTED SHIFT IN RECLINER, ENDED IN BED VIA CEILING LIFT. OTHERWISE, PT RESTING SOUNDLY. CALL LIGHT WITHIN REACH.
[2023-04-15 08:01] VITALS: BP 172/77
--- NOTE | 2023-04-15 11:04 | NUR ---
MORNING NOTE THIS RN ASSUMED CARE AT APPROX 0715. PT AOX4. PLEASANT, COOPERATIVE WITH CARE. ABLE TO COMMUNICATE NEEDS EFFECTIVELY NEEDED. VSS. HTN NOTED, SBP 170'S. PT REPORTS NO CHEST PAIN OR PRESSURE. CURRENTLY ON ROOM AIR, SATS >90%. PUREWICK AND ATTENDS IN PLACE. CHANGING TO KEEP C/D/I. 24HR URINE COLLECTION IN PLACE PER MD. BEDBATH AND MORNING CARE PROVIDED BY PCT's THIS MORNING. TRANSFERS VIA LIFT, IS CURRENTLY SITTING IN CHAIR. WORKED WITH PHYSICAL AND OCCUPATIONAL THERAPY THIS MORNING. PLAN TO DISCHARGE TO PRISON FACILITY. CASE MANAGEMENT ON CASE TO ASSIST WITH DISCHARGE NEEDS, INCLUDING HOME TRILOGY. CALL LIGHT IN REACH.
--- NOTE | 2023-04-15 11:12 | NUR ---
UPDATE MD BELL PLANNING ON DISCHARGING PT TODAY TO [facility] FACILITY. THIS RN CONTACTED MD MORGAN IN REGARDS TO 24 HOUR URINE, RCVD ORDER TO DISCHARGE LABARATORY STUDIES.
[2023-04-15 11:25] VITALS: BP 157/77
[2023-04-15 12:17] LABS: SARS-Cov-2 (COVID-19) PCR, MMC NEGATIVE (NEGATIVE)
[2023-04-15 14:10] VITALS: BP 157/69
--- NOTE | 2023-04-15 16:34 | NUR ---
DISCHARGE: TRANSPORT IN TO PICK PATIENT UP AT 1600. THIS RN CALLED REPORT TO [facility]. PATIENT LEFT WITH ALL PERSONAL BELONGINGS AND HOSPITAL DISCHARGE. NO ACUTE CHANGES. [facility] SENT WITH TRANSPORT. HOME MEDS RETURNED TO PATIENT AND [facility] AWARE.
== END 2023-04-15 16:00 | DRG 689 ==
LOC: ER 19:32 → MEDS 22:01 → ICUE 04-09 15:54 → MEDS 04-09 15:54 → PCU 04-09 15:54 → MEDS 04-09 15:57 → ICUE 04-10 13:00 → PCU 04-11 15:39
PROVIDERS: Emergency Medicine; Family Medicine; Internal Medicine; Internal Medicine Nephrology; ADMIT Internal Medicine
PROC: 5A09357 Assistance with Respiratory Ventilation, Less than 24 Consecutive Hours, Continuous Positive Airway Pressure (ICD-10-PCS; principal; 2023-04-09)
PROC: 4A133R1 Monitoring of Arterial Saturation, Peripheral, Percutaneous Approach (ICD-10-PCS; 2023-04-09)
DX: N39.0 Urinary tract infection, site not specified (principal); J96.22 Acute and chronic respiratory failure with hypercapnia; N17.9 Acute kidney failure, unspecified; Z68.44 Body mass index [BMI] 60.0-69.9, adult; E87.4 Mixed disorder of acid-base balance; N18.9 Chronic kidney disease, unspecified; E11.22 Type 2 diabetes mellitus with diabetic chronic kidney disease; E11.40 Type 2 diabetes mellitus with diabetic neuropathy, unspecified; I12.9 Hypertensive chronic kidney disease with stage 1 through stage 4 chronic kidney disease, or unspecified chronic kidney disease; E03.9 Hypothyroidism, unspecified; E66.9 Obesity, unspecified; W18.30XA Fall on same level, unspecified, initial encounter; R62.7 Adult failure to thrive; E86.9 Volume depletion, unspecified; E88.09 Other disorders of plasma-protein metabolism, not elsewhere classified; E83.41 Hypermagnesemia; E83.39 Other disorders of phosphorus metabolism; E86.0 Dehydration; Z11.52 Encounter for screening for COVID-19; Z88.1 Allergy status to other antibiotic agents; Z79.891 Long term (current) use of opiate analgesic; Z79.01 Long term (current) use of anticoagulants; Z79.899 Other long term (current) drug therapy; Z90.89 Acquired absence of other organs; Z98.890 Other specified postprocedural states; Z87.891 Personal history of nicotine dependence; Z74.01 Bed confinement status; Z79.4 Long term (current) use of insulin; Z79.51 Long term (current) use of inhaled steroids
CPT/HCPCS: 36415; 36600; 70450; 71045; 72170; 72220; 76770; 80053; 80069; 81001; 82550; 82803; 82947; 83605; 83735; 83880; 84100; 85025; 85379; 93005; 93010; 93970; 94640; 94660; 94664; 94762; 96365; 96367; 96372; 96375; 97110; 97161; 97166; 97530; 97535; 99285-25; A9270; C1751; C9113; G0378; J0696; J1650; J2405; J2930; J7030; J7050; J7060; J7512; P9047; U0002

== ENCOUNTER → 2023-08-11 | Outpatient (CLI) | payer MEDICARE ==
[~2023-08-11] MED LIST changes: +MIRALAX17 GM PO
[2023-08-11 14:34] LABS: BASOPHILS ABSOLUTE AUTO 0.05 K/mm3 (0.00-0.23); BASOPHILS PERCENT AUTO 1 % (0-2); EOSINOPHILS ABSOLUTE AUTO 0.12 K/mm3 (0.00-0.68); EOSINOPHILS PERCENT AUTO 2 % (0-6); Hematocrit 43.6 % (33.0-51.0); Hemoglobin 13.7 g/dL (11.5-16.0); IMMATURE GRAN ABSOLUTE AUTO 0.01 K/mm3 (0.00-0.10); IMMATURE GRAN PERCENT AUTO 0 % (0-1); LYMPHOCYTES ABSOLUTE AUTO 1.44 K/mm3 (0.84-5.20); LYMPHOCYTES PERCENT AUTO 26 % (21-46); MONOCYTES ABSOLUTE AUTO 0.35 K/mm3 (0.16-1.47); MONOCYTES PERCENT AUTO 6 % (4-13); Mean Corpuscular HGB 30.5 pg (26.0-34.0); Mean Corpuscular HGB Conc 31.4 g/dL (31.5-36.5); Mean Corpuscular Volume 97 fL (80-100); Mean Platelet Volume 9.6 fL (9.1-12.4); NEUTROPHILS ABSOLUTE AUTO 3.61 K/mm3 (1.96-9.15); NEUTROPHILS PERCENT AUTO 65 % (41-73); Platelet Count 240 K/mm3 (150-400); RDW Coefficient Variation 13.1 % (11.7-14.2); RDW Standard Deviation 46.5 fL (35.1-46.3); Red Blood Cell Count 4.49 M/mm3 (3.80-5.20); White Blood Cell Count 5.58 K/mm3 (4.00-11.30)
[2023-08-11 14:48] LABS: Albumin, Blood 3.2 g/dL (3.4-5.0); Albumin/Globulin Ratio 0.7 (0.8-1.8); Bilirubin, Direct 0.1 mg/dL (0.0-0.3); Bilirubin, Indirect 0.5 mg/dL (0.1-0.7); Bilirubin, Total 0.6 mg/dL (0.1-1.0); Bun/Creatinine Ratio 18.3 (12.0-20.0); Calcium, Blood 9.6 mg/dL (8.5-10.1); Creatinine, Blood 1.26 mg/dL (0.40-1.00); Globulin, Blood 4.3 g/dL (2.2-4.0); Phosphorus, Blood 2.8 mg/dL (2.5-4.9); Potassium, Blood 3.6 mmol/L (3.5-5.5); Total Protein, Blood 7.5 g/dL (6.4-8.2)
[2023-08-13 09:50] LABS: GBM, IGG MULTIPLEX BEAD ASSAY 0 AU/mL (0-19); MYELOPEROXIDASE (MPO) AB,IGG 0 AU/mL (0-19); SERINE PROTEINASE 3 PR3 AB,IGG 66 AU/mL (0-19)
[2023-08-14 05:45] LABS: ANA PATTERN Centromere; ANTINUCLEAR AB (ANA),HEP-2,IGG Detected (<1:80)
[2023-08-14 11:30] LABS: ANCA IFA PATTERN None Detected (None Detected); ANCA IFA TITER <1:20 (<1:20)
== END ==
LOC: LAB SHORT 12:20 → LAB 12:20
PROVIDERS: Internal Medicine Nephrology
DX: N18.30 Chronic kidney disease, stage 3 unspecified (principal); D63.1 Anemia in chronic kidney disease; N25.81 Secondary hyperparathyroidism of renal origin; E55.9 Vitamin D deficiency, unspecified; E78.00 Pure hypercholesterolemia, unspecified; R76.9 Abnormal immunological finding in serum, unspecified; R94.5 Abnormal results of liver function studies; R94.6 Abnormal results of thyroid function studies
CPT/HCPCS: 80053; 82248; 83516; 84100; 85025; 86036; 86039

== ENCOUNTER → 2024-11-08 | Outpatient (CLI) | payer MEDICARE | LOC: LAB SHORT 16:33 → LAB 16:33 | DX: N39.0 Urinary tract infection, site not specified (principal) | CPT/HCPCS: 87077; 87086; 87186 ==

== ENCOUNTER 2025-02-22 20:16 | Inpatient (IN) | payer MEDICARE, OTHER ==
[~2025-02-22] VITALS: Ht 172.7 cm; Wt 149.7 kg
[2025-02-22 20:42] LABS: pH Blood Venous 7.15 (7.34-7.37)
[2025-02-22 20:58] LABS: Hematocrit 47.2 % (33.0-51.0); Hemoglobin 14.1 g/dL (11.5-16.0); Mean Corpuscular HGB Conc 29.9 g/dL (31.5-36.5); Mean Corpuscular Volume 105 fL (80-100); NRBC ABSOLUTE 0.00 K/mm3 (0.00-0.02); NRBC Auto 0.0 /100 WBC (0.0-0.2); Platelet Count 232 K/mm3 (150-400); RDW Coefficient Variation 13.0 % (11.7-14.2); RDW Standard Deviation 50.4 fL (35.1-46.3)
[2025-02-22 21:05] LABS: Alanine Aminotransfer (ALT/SGP 34.0 U/L (12-78); Albumin, Blood 3.1 g/dL (3.4-5.0); Albumin/Globulin Ratio 0.7 (0.8-1.8); Anion Gap 6.0 mmol/L (3-11); Aspartate Aminotrans (AST/SGOT 31.0 U/L (12-37); Bilirubin, Total 0.4 mg/dL (0.1-1.0); Blood Urea Nitrogen 44.0 mg/dL (8-24); CO2, Blood 31.0 mmol/L (21-32); Calcium, Blood 8.8 mg/dL (8.5-10.1); Chloride, Blood 105.0 mmol/L (98-108); Creatinine, Blood 2.33 mg/dL (0.40-1.00); Globulin, Blood 4.4 g/dL (2.2-4.0); Glucose, Blood 136.0 mg/dL (70-99); Potassium, Blood 4.6 mmol/L (3.5-5.5); Sodium, Blood 137.0 mmol/L (136-145); Total Protein, Blood 7.5 g/dL (6.4-8.2)
[2025-02-22] MEDS ORDERED: NS 1,000 ML IV SCH ×2 (21:35→21:40)
[2025-02-22 21:44] LABS: BAND PERCENT MAN 19 % (0-8); BASOPHILS ABSOLUTE MAN 0.07 K/mm3 (0.00-0.23); BASOPHILS PERCENT MAN 1 % (0-2); EOSINOPHILS ABSOLUTE MAN 0.07 K/mm3 (0.00-0.68); EOSINOPHILS PERCENT MAN 1 % (0-6); LYMPHOCYTES ABSOLUTE MAN 1.68 K/mm3 (0.84-5.20); LYMPHOCYTES PERCENT MAN 24 % (21-46); MONOCYTES ABSOLUTE MAN 1.05 K/mm3 (0.16-1.47); MONOCYTES PERCENT MAN 15 % (4-13); NEUTROPHILS ABSOLUTE MAN 4.14 K/mm3 (1.96-9.15); SEG NEUTROPHILS PERCENT MAN 40 % (41-73)
[2025-02-22] MEDS ORDERED: CefTRIAXone Sodium 2,000 MG in NS 100 ML IV ONE (21:45)
[2025-02-22 22:36] LABS: pH Blood Venous 7.27 (7.34-7.37)
[2025-02-22] MEDS ORDERED: Vancomycin (Pharmacy Consult) IV SCH (22:55)
[2025-02-23] VITALS (21 sets, daily range): BP systolic 86–174; BP diastolic 59–117
[2025-02-23] MEDS ORDERED: Vancomycin HCL 2,500 MG in NS 500 ML IV ONE (00:25)
[2025-02-23] MEDS ORDERED: Albuterol 2.5 MG/3 ML VIAL INH PRN (01:50)
[2025-02-23 02:16] LABS: pH Blood Venous 7.37 (7.34-7.37)
[2025-02-23 02:17] LABS: Hematocrit 48.4 % (33.0-51.0); Hemoglobin 14.4 g/dL (11.5-16.0); Mean Corpuscular HGB Conc 29.8 g/dL (31.5-36.5); Mean Corpuscular Volume 105 fL (80-100); NRBC ABSOLUTE 0.00 K/mm3 (0.00-0.02); NRBC Auto 0.0 /100 WBC (0.0-0.2); Platelet Count 170 K/mm3 (150-400); RDW Coefficient Variation 12.9 % (11.7-14.2); RDW Standard Deviation 50.3 fL (35.1-46.3)
[2025-02-23 02:46] LABS: Alanine Aminotransfer (ALT/SGP 40.0 U/L (12-78); Albumin, Blood 2.9 g/dL (3.4-5.0); Albumin/Globulin Ratio 0.7 (0.8-1.8); Anion Gap 10.0 mmol/L (3-11); Aspartate Aminotrans (AST/SGOT 39.0 U/L (12-37); Bilirubin, Total 0.4 mg/dL (0.1-1.0); Blood Urea Nitrogen 45.0 mg/dL (8-24); CO2, Blood 26.0 mmol/L (21-32); Calcium, Blood 8.0 mg/dL (8.5-10.1); Chloride, Blood 107.0 mmol/L (98-108); Creatinine, Blood 2.14 mg/dL (0.40-1.00); Globulin, Blood 4.3 g/dL (2.2-4.0); Glucose, Blood 140.0 mg/dL (70-99); Magnesium, Blood 2.1 mg/dL (1.6-2.4); Potassium, Blood 5.2 mmol/L (3.5-5.5); Sodium, Blood 138.0 mmol/L (136-145); Total Protein, Blood 7.2 g/dL (6.4-8.2)
[2025-02-23 03:14] LABS: BAND PERCENT MAN 23 % (0-8); BASOPHILS ABSOLUTE MAN 0.00 K/mm3 (0.00-0.23); BASOPHILS PERCENT MAN 0 % (0-2); EOSINOPHILS ABSOLUTE MAN 0.00 K/mm3 (0.00-0.68); EOSINOPHILS PERCENT MAN 0 % (0-6); LYMPHOCYTES ABSOLUTE MAN 0.79 K/mm3 (0.84-5.20); LYMPHOCYTES PERCENT MAN 11 % (21-46); MONOCYTES ABSOLUTE MAN 0.14 K/mm3 (0.16-1.47); MONOCYTES PERCENT MAN 2 % (4-13); MYELOCYTE ABSOLUTE MAN 0.07 K/mm3 (0.00-0.00); MYELOCYTE PERCENT MAN 1 % (0-0); NEUTROPHILS ABSOLUTE MAN 6.21 K/mm3 (1.96-9.15); SEG NEUTROPHILS PERCENT MAN 63 % (41-73)
--- NOTE | 2025-02-23 06:18 | NUR ---
SHIFT SUMMARY RECEIVED PT FROM ED AT 0030. VERY LETHARGIC, BUT ABLE TO STATE FULL NAME, MAEX4 SPONT, BUT NOT FOLLOWING COMMANDS. ON BIPAP, FIO2 40%, SLIGHTLY RESTLESS, ORIENTED TO ROOM AND SITUATION, MORE CALM T/O SHIFT, NODS UNDERSTANDING OF SITUATION THIS AM. BP OCC ELEVATED, CURRENTLY 174/90. HR 60'S. AFEBRILE. DR ASCENCIO UPDATED WITH TROPONIN BUMP TO 226. WILL UPDATE DAY RN WITH ALL OUTSTANDING ISSUES AND PROBLEMS TO DATE.
[2025-02-23] MEDS ORDERED: Lactobacil 2-S.Thermo-Bifido 1 1 Cap PO SCH (09:00)
[2025-02-23] MEDS ORDERED: Enoxaparin 30 MG/0.3 ML SYR SC SCH (09:00)
[2025-02-23 10:24] LABS: pH Blood Arterial 7.37 (7.35-7.45)
[2025-02-23] MEDS ORDERED: Methyl Salicylate/Menth/Camph 57 GM TUBE TOP PRN (11:00)
[2025-02-23 11:32] LABS: Influenza A/2009-H1 Not Detected (NOT DETECT); SARS-Cov-2 (COVID-19), BioFire Not Detected (NOT DETECT)
--- NOTE | 2025-02-23 15:40 | NUR ---
TRANSFER TO MEDICAL REPORT CALLED. ALL QUESTIONS ANSWERED. PT TAKEN TO ROOM 349 VIA BED ON 2L O2 NC. ALL PT BELONGINGS SENT WITH PT.
--- NOTE | 2025-02-23 16:49 | NUR ---
TRANSFER NOTE 1545 PT ARRIVED TO MEDICAL FLOOR INTO ROOM 349. SLIDE TRANSFER INTO BED. VSS UPON TRANSFER. DENIED SHORTNESS OF BREATH. PUREWICK ATTACHED. TELEMETRY IN PLACE READING NSR IN 70s.
--- NOTE | 2025-02-23 16:51 | NUR ---
PROVIDER CONTACT NEW [facility] TELEMETRY CALLED AND REPORTED [facility] ELEVATIONS OF 2.3. MOMENTS LATER THIS NURSE CONTACTED TELEMETRY TO VERIFY 2.3 REPORTED AND HOME CARE AIDE STATED THAT THEY WERE THEN AT 2.5. PT DENIES CHEST PAIN AND/OR DISCOMFORT. DR TALAVERA NOTIFIED OF NEW ELEVATIONS VIA TELEPHONE. PLAN TO MONITOR PT AND COMPLETE AN EKG. CARE ONGOING.
--- NOTE | 2025-02-23 17:48 | NUR ---
SHIFT SUMMARY: A&OX4. COOPERATIVE AND PLEASANT WITH CARE. PT HAS DENIED NEED FOR BIPAP/NC O2 USE. DENIES CHEST PAIN AND/OR DISCOMFORT. LYING IN BED AT THIS TIME. CALL LT NEAR.
[2025-02-23] MEDS ORDERED: NS 250 ML IV PRN (19:45)
[2025-02-23] MEDS ORDERED: CefTRIAXone Sodium 1,000 MG in NS 100 ML IV SCH (21:00)
[2025-02-24 03:26] VITALS: BP 126/60
--- NOTE | 2025-02-24 05:10 | NUR ---
SHIFT SUMMARY PT ALERT AND ORIENTED, ABLE TO MAKE NEEDS KNOWN. HACKING, PRODUCTIVE COUGH WITH THICK WHITE PHLEGM- USING YANKOUR SUCTION. PT USING O2 AT 2L NC WHILE AWAKE, AND BIPAP WHEN SLEEPING. PUREWICK IN PLACE, DRAINING YELLOW URINE. LEFT AC IV INFILTRATED DURING AZIITHROMYCIN INFUSION- WARM COMPRESS USED, FOLLOWED BY ICEPACK FOR COMFORT. PT SLEPT LONG INVTERVALS DURING THE NIGHT.
[2025-02-24 06:21] LABS: BASOPHILS ABSOLUTE AUTO 0.05 K/mm3 (0.00-0.23); BASOPHILS PERCENT AUTO 1 % (0-2); EOSINOPHILS ABSOLUTE AUTO 0.09 K/mm3 (0.00-0.68); EOSINOPHILS PERCENT AUTO 2 % (0-6); Hematocrit 41.6 % (33.0-51.0); Hemoglobin 12.8 g/dL (11.5-16.0); IMMATURE GRAN ABSOLUTE AUTO 0.05 K/mm3 (0.00-0.10); IMMATURE GRAN PERCENT AUTO 1 % (0-1); LYMPHOCYTES ABSOLUTE AUTO 1.45 K/mm3 (0.84-5.20); LYMPHOCYTES PERCENT AUTO 25 % (21-46); MONOCYTES ABSOLUTE AUTO 0.51 K/mm3 (0.16-1.47); MONOCYTES PERCENT AUTO 9 % (4-13); Mean Corpuscular HGB Conc 30.8 g/dL (31.5-36.5); Mean Corpuscular Volume 104 fL (80-100); NEUTROPHILS ABSOLUTE AUTO 3.57 K/mm3 (1.96-9.15); NEUTROPHILS PERCENT AUTO 62 % (41-73); NRBC ABSOLUTE 0.00 K/mm3 (0.00-0.02); NRBC Auto 0.0 /100 WBC (0.0-0.2); Platelet Count 184 K/mm3 (150-400); RDW Coefficient Variation 13.0 % (11.7-14.2); RDW Standard Deviation 49.5 fL (35.1-46.3)
[2025-02-24 06:39] LABS: Alanine Aminotransfer (ALT/SGP 27.0 U/L (12-78); Albumin, Blood 2.5 g/dL (3.4-5.0); Albumin/Globulin Ratio 0.7 (0.8-1.8); Anion Gap 5.0 mmol/L (3-11); Aspartate Aminotrans (AST/SGOT 19.0 U/L (12-37); Bilirubin, Total 0.3 mg/dL (0.1-1.0); Blood Urea Nitrogen 33.0 mg/dL (8-24); CO2, Blood 32.0 mmol/L (21-32); Calcium, Blood 8.4 mg/dL (8.5-10.1); Chloride, Blood 109.0 mmol/L (98-108); Creatinine, Blood 1.37 mg/dL (0.40-1.00); Globulin, Blood 3.7 g/dL (2.2-4.0); Glucose, Blood 92.0 mg/dL (70-99); Potassium, Blood 4.2 mmol/L (3.5-5.5); Sodium, Blood 142.0 mmol/L (136-145); Total Protein, Blood 6.2 g/dL (6.4-8.2)
[2025-02-24 07:24] VITALS: BP 151/66
[2025-02-24 12:06] VITALS: BP 131/73
[2025-02-24 15:46] VITALS: BP 143/64
--- NOTE | 2025-02-24 16:49 | NUR ---
SHIFT SUMMARY: A&OX4. PLEASANT AND COOPERATIVE WITH CARE. NO ACUTE EVENTS THIS SHIFT. PT CURRENTLY ON 2L O2 VIA NC. HAS NOT NEEDED TO USE BIPAP THIS SHIFT. BREATHING EQUAL AND NONLABORED. O2 SATS >90%. NO COMPLAINTS OF SHORTNESS OF BREATH. PLAN TO POSSIBLY D/C TOMORROW. LYING IN BED. BED LOCKED AND IN THE LOWEST POSITION. CALL LT WITHIN REACH.
[2025-02-24 20:40] VITALS: BP 148/53
[2025-02-24] MEDS ORDERED: OPTH BOTHEYES SCH (21:00)
[2025-02-24] MEDS ORDERED: CYCLOSPORINE 0.05% BOTHEYES SCH (21:00)
[2025-02-24] MEDS ORDERED: Polyethylene Glycol 3350 17 gm PO SCH (21:00)
[2025-02-24 23:52] VITALS: BP 140/50
[2025-02-25 04:30] VITALS: BP 129/60
[2025-02-25 05:19] LABS: BASOPHILS ABSOLUTE AUTO 0.04 K/mm3 (0.00-0.23); BASOPHILS PERCENT AUTO 1 % (0-2); EOSINOPHILS ABSOLUTE AUTO 0.14 K/mm3 (0.00-0.68); EOSINOPHILS PERCENT AUTO 3 % (0-6); Hematocrit 42.2 % (33.0-51.0); Hemoglobin 13.0 g/dL (11.5-16.0); IMMATURE GRAN ABSOLUTE AUTO 0.05 K/mm3 (0.00-0.10); IMMATURE GRAN PERCENT AUTO 1 % (0-1); LYMPHOCYTES ABSOLUTE AUTO 1.27 K/mm3 (0.84-5.20); LYMPHOCYTES PERCENT AUTO 23 % (21-46); MONOCYTES ABSOLUTE AUTO 0.53 K/mm3 (0.16-1.47); MONOCYTES PERCENT AUTO 9 % (4-13); Mean Corpuscular HGB Conc 30.8 g/dL (31.5-36.5); Mean Corpuscular Volume 101 fL (80-100); NEUTROPHILS ABSOLUTE AUTO 3.58 K/mm3 (1.96-9.15); NEUTROPHILS PERCENT AUTO 64 % (41-73); NRBC ABSOLUTE 0.00 K/mm3 (0.00-0.02); NRBC Auto 0.0 /100 WBC (0.0-0.2); Platelet Count 144 K/mm3 (150-400); RDW Coefficient Variation 12.8 % (11.7-14.2); RDW Standard Deviation 47.9 fL (35.1-46.3)
[2025-02-25 05:23] LABS: Alanine Aminotransfer (ALT/SGP 24.0 U/L (12-78); Albumin, Blood 2.3 g/dL (3.4-5.0); Albumin/Globulin Ratio 0.6 (0.8-1.8); Anion Gap 8.0 mmol/L (3-11); Aspartate Aminotrans (AST/SGOT 20.0 U/L (12-37); Bilirubin, Total 0.3 mg/dL (0.1-1.0); Blood Urea Nitrogen 24.0 mg/dL (8-24); CO2, Blood 30.0 mmol/L (21-32); Calcium, Blood 8.1 mg/dL (8.5-10.1); Chloride, Blood 109.0 mmol/L (98-108); Creatinine, Blood 1.05 mg/dL (0.40-1.00); Globulin, Blood 3.6 g/dL (2.2-4.0); Glucose, Blood 93.0 mg/dL (70-99); Potassium, Blood 4.3 mmol/L (3.5-5.5); Sodium, Blood 143.0 mmol/L (136-145); Total Protein, Blood 5.9 g/dL (6.4-8.2)
--- NOTE | 2025-02-25 05:27 | NUR ---
SHIFT SUMMARY PT SLEPT INTERMITTENTLY DURING THE NIGHT. BIPAP USED WHILE SLEEPING AND O2 AT 2L NC USED WHILE AWAKE. PT WITH HACKING, PRODUCTIVE COUGH WITH THICK WHITE PHLEGM- USING YANKOUR SUCTION TO HANDLE SECRETIONS. PT CONT/INCONT URINE AND SMALL INCONT STOOL. PT ASSISTED TO REPOSITION DURING THE NIGHT.
[2025-02-25 07:10] VITALS: BP 150/60
[2025-02-25] MEDS ORDERED: Calcium 500 MG/Vit D 200 Units Tab PO SCH (09:00)
[2025-02-25] MEDS ORDERED: Cholecalciferol 1000 Unit Tablet (=25MCG) PO SCH (09:00)
[2025-02-25] MEDS ORDERED: VIBEGRON 75 MG PO SCH (09:00)
[2025-02-25 11:18] VITALS: BP 142/54
[2025-02-25 15:58] VITALS: BP 166/66
[2025-02-25] MEDS ORDERED: LOSA25 PO (16:01)
--- NOTE | 2025-02-25 18:00 | NUR ---
SHIFT SUMMARY A&OX4 W/FORGETFULNESS, VSS (BP'S ELEVATED) MD AWARE, REQ HOME BP MED ORDERED, DENIES PAIN, RAHAT XFER AT THIS TIME, MOVING TO LIFT ROOM AT END OF SHIFT, EATING DINNER AT THIS TIME, CALL LIGHT IN REACH, WILL CONT TO MONITOR UNTIL REPORT GIVEN TO ONCOMING NURSE.
[2025-02-25 19:23] VITALS: BP 169/72
[2025-02-25] MEDS ORDERED: Miconazole Nitrate 2% 85 GM PWD TOP SCH (21:00)
[2025-02-26] VITALS (7 sets, daily range): BP systolic 132–186; BP diastolic 53–92
--- NOTE | 2025-02-26 06:33 | NUR ---
PT A&OX4, ABLE TO TURN HERSELF IN BED. PT HAS SLEPT WITH BIPAP ON T/O THE NIGHT.
[2025-02-26 06:54] LABS: BASOPHILS ABSOLUTE AUTO 0.03 K/mm3 (0.00-0.23); BASOPHILS PERCENT AUTO 1 % (0-2); EOSINOPHILS ABSOLUTE AUTO 0.11 K/mm3 (0.00-0.68); EOSINOPHILS PERCENT AUTO 2 % (0-6); Hematocrit 42.5 % (33.0-51.0); Hemoglobin 12.7 g/dL (11.5-16.0); IMMATURE GRAN ABSOLUTE AUTO 0.06 K/mm3 (0.00-0.10); IMMATURE GRAN PERCENT AUTO 1 % (0-1); LYMPHOCYTES ABSOLUTE AUTO 1.04 K/mm3 (0.84-5.20); LYMPHOCYTES PERCENT AUTO 22 % (21-46); MONOCYTES ABSOLUTE AUTO 0.43 K/mm3 (0.16-1.47); MONOCYTES PERCENT AUTO 9 % (4-13); Mean Corpuscular HGB Conc 29.9 g/dL (31.5-36.5); Mean Corpuscular Volume 103 fL (80-100); NEUTROPHILS ABSOLUTE AUTO 3.01 K/mm3 (1.96-9.15); NEUTROPHILS PERCENT AUTO 64 % (41-73); NRBC ABSOLUTE 0.00 K/mm3 (0.00-0.02); NRBC Auto 0.0 /100 WBC (0.0-0.2); Platelet Count 155 K/mm3 (150-400); RDW Coefficient Variation 12.5 % (11.7-14.2); RDW Standard Deviation 47.4 fL (35.1-46.3)
[2025-02-26 07:05] LABS: Anion Gap 4.0 mmol/L (3-11); Blood Urea Nitrogen 20.0 mg/dL (8-24); CO2, Blood 36.0 mmol/L (21-32); Calcium, Blood 8.7 mg/dL (8.5-10.1); Chloride, Blood 106.0 mmol/L (98-108); Creatinine, Blood 1.08 mg/dL (0.40-1.00); Glucose, Blood 93.0 mg/dL (70-99); Potassium, Blood 4.1 mmol/L (3.5-5.5); Sodium, Blood 142.0 mmol/L (136-145)
--- NOTE | 2025-02-26 16:22 | NUR ---
SHIFT SUMMARY PATIENT SEEN BY PT TODAY. UP IN CHAIR WITH LIFT. PATIENT ABLE TO STAND WITH WALKER/GAITBELT AND 2 PERSON ASSIST TO BARIATIC COMMODE FOR BM. PATIENT UP FOR LUNCH AND DINNER IN CHAIR. PUREWICK IN PLACE. MOISTURE BREAKDOWN NOTED ON THE LEFT POSTERIOR THIGH, JUST BENEATH BUTTOCKS. AREA CLEANSED AND DRIED WELL, MEPILEX PLACED. PATIENT A&OX4, O2 AT 95% ON 1L. CURRENTLY IN RECLINER, CALL LIGHT WITHIN REACH.
--- NOTE | 2025-02-26 16:30 | NUR ---
RN CONTACTED PROVIDER RE BP OF 186/83. ORDERS FOR 25 MG LOSARTAN ONE TIME DOSE NOW. PROVIDER TO ORDER A PRN MEDICATION FOR HYPERTENSION.
[2025-02-26] MEDS ORDERED: HydrALAZINE HCl 20 MG / ML 1ML Vial IV PRN (16:35)
--- NOTE | 2025-02-26 18:10 | NUR ---
REASSESSED BP AND IMPROVED - SEE VITALS. NO NEED FOR PRN
--- NOTE | 2025-02-26 18:11 | NUR ---
NO ACUTE CHANGES SINCE RN ASSUMED CARE OF PT AT 1600. BP IMPROVING, NO NEED FOR PRN APRESOLINE AT THIS TIME. WILL REPORT TO ONCOMING NOC SHIFT RN.
[2025-02-26] MEDS ORDERED: Enoxaparin 40 MG/0.4 ML SYR SC SCH (21:00)
[2025-02-27 00:31] VITALS: BP 123/64
--- NOTE | 2025-02-27 03:29 | NUR ---
SHIFT SUMMARY NO ACUTE EVENTS DURING THIS SHIFT. O2 1L VIA NC, SAT'S LOW 90'S. PRODUCTIVE COUGH NOTED, PT SELF SUCTIONING. AT HS PT SITTING IN A RECLINER, TRANSFERRED WITH A LIFT AND 2-PERSON ASSIST TO BED. PUREWICK DRAINING YELLOW COLOR URINE. IV ABX INFUSED ORDERED. STRICT I&O'S. PT DENIES PAIN AND DISCOMFORT DURING THIS SHIFT. BED AT THE LOWEST POSITION, CALL LIGHT W/I REACH. PT IS A/O X4, ABLE TO MAKE HER NEEDS KNOWN AND COOPERATIVE WITH CARE. PT EXPRESSING MOTIVATION TO START AMBULATING. BED AT THE LOWEST POSITION, CALL LIGHT W/I REACH.
[2025-02-27 04:52] VITALS: BP 147/74
[2025-02-27 05:29] LABS: BASOPHILS ABSOLUTE AUTO 0.03 K/mm3 (0.00-0.23); BASOPHILS PERCENT AUTO 1 % (0-2); EOSINOPHILS ABSOLUTE AUTO 0.15 K/mm3 (0.00-0.68); EOSINOPHILS PERCENT AUTO 4 % (0-6); Hematocrit 41.9 % (33.0-51.0); Hemoglobin 12.6 g/dL (11.5-16.0); IMMATURE GRAN ABSOLUTE AUTO 0.04 K/mm3 (0.00-0.10); IMMATURE GRAN PERCENT AUTO 1 % (0-1); LYMPHOCYTES ABSOLUTE AUTO 1.02 K/mm3 (0.84-5.20); LYMPHOCYTES PERCENT AUTO 24 % (21-46); MONOCYTES ABSOLUTE AUTO 0.36 K/mm3 (0.16-1.47); MONOCYTES PERCENT AUTO 8 % (4-13); Mean Corpuscular HGB Conc 30.1 g/dL (31.5-36.5); Mean Corpuscular Volume 103 fL (80-100); NEUTROPHILS ABSOLUTE AUTO 2.67 K/mm3 (1.96-9.15); NEUTROPHILS PERCENT AUTO 63 % (41-73); NRBC ABSOLUTE 0.00 K/mm3 (0.00-0.02); NRBC Auto 0.0 /100 WBC (0.0-0.2); Platelet Count 135 K/mm3 (150-400); RDW Coefficient Variation 12.3 % (11.7-14.2); RDW Standard Deviation 46.1 fL (35.1-46.3)
[2025-02-27 05:49] LABS: Anion Gap 5.0 mmol/L (3-11); Blood Urea Nitrogen 22.0 mg/dL (8-24); CO2, Blood 37.0 mmol/L (21-32); Calcium, Blood 8.6 mg/dL (8.5-10.1); Chloride, Blood 103.0 mmol/L (98-108); Creatinine, Blood 1.11 mg/dL (0.40-1.00); Glucose, Blood 90.0 mg/dL (70-99); Potassium, Blood 4.3 mmol/L (3.5-5.5); Sodium, Blood 141.0 mmol/L (136-145)
[2025-02-27 07:57] VITALS: BP 144/75
[2025-02-27 11:22] VITALS: BP 126/75
[2025-02-27 16:27] VITALS: BP 162/72
--- NOTE | 2025-02-27 17:01 | NUR ---
SHIFT SUMMARY PATIENT IS A&OX4, INCONTINENT, PUREWICK IN PLACE. CURRENTLY UP IN CHAIR FOR DINNER. PATIENT COMPLETED 2 VIEW CHEST XRAY TODAY. O2 DROPPED TO 84% WITH NASAL CANNULA AT 1L WHEN SHE FELL ASLEEP. PLACED CPAP ON FOR NAP. HER CALL LIGHT IS WITHIN REACH. USES CALL LIGHT APPROPRIATELY.
[2025-02-27 19:42] VITALS: BP 141/72
--- NOTE | 2025-02-28 03:38 | NUR ---
SHIFT SUMMARY NO ACUTE EVENTS DURING THIS SHIFT. CPAP AT NIGHT. 1L VIA NC AT HS, O2 SAT'S 92-95%. PT DENIES SOB. SELF SUCTIONING, PRODUCTIVE COUGH. PT DENIES PAIN AND DISCOMFORT. ASSISTED USING LIFT BACK TO BED FROM RECLINER AT HS. PUREWICK IN PLACE, VOIDING WELL. BED AT THE LOWEST POSITION, CALL LIGHT W/I REACH. PT IS A/O X4, ABLE TO MAKE HER NEEDS KNOWN AND COOPERATIVE WITH CARE. PLEASANT.
[2025-02-28 04:08] VITALS: BP 128/69
[2025-02-28 06:57] LABS: BASOPHILS ABSOLUTE AUTO 0.02 K/mm3 (0.00-0.23); BASOPHILS PERCENT AUTO 0 % (0-2); EOSINOPHILS ABSOLUTE AUTO 0.17 K/mm3 (0.00-0.68); EOSINOPHILS PERCENT AUTO 4 % (0-6); Hematocrit 41.7 % (33.0-51.0); Hemoglobin 12.6 g/dL (11.5-16.0); IMMATURE GRAN ABSOLUTE AUTO 0.05 K/mm3 (0.00-0.10); IMMATURE GRAN PERCENT AUTO 1 % (0-1); LYMPHOCYTES ABSOLUTE AUTO 1.04 K/mm3 (0.84-5.20); LYMPHOCYTES PERCENT AUTO 22 % (21-46); MONOCYTES ABSOLUTE AUTO 0.38 K/mm3 (0.16-1.47); MONOCYTES PERCENT AUTO 8 % (4-13); Mean Corpuscular HGB Conc 30.2 g/dL (31.5-36.5); Mean Corpuscular Volume 104 fL (80-100); NEUTROPHILS ABSOLUTE AUTO 3.05 K/mm3 (1.96-9.15); NEUTROPHILS PERCENT AUTO 65 % (41-73); NRBC ABSOLUTE 0.00 K/mm3 (0.00-0.02); NRBC Auto 0.0 /100 WBC (0.0-0.2); Platelet Count 132 K/mm3 (150-400); RDW Coefficient Variation 12.4 % (11.7-14.2); RDW Standard Deviation 46.8 fL (35.1-46.3)
[2025-02-28 07:34] LABS: Anion Gap 3.0 mmol/L (3-11); Blood Urea Nitrogen 19.0 mg/dL (8-24); CO2, Blood 40.0 mmol/L (21-32); Calcium, Blood 8.6 mg/dL (8.5-10.1); Chloride, Blood 103.0 mmol/L (98-108); Creatinine, Blood 0.98 mg/dL (0.40-1.00); Glucose, Blood 84.0 mg/dL (70-99); Potassium, Blood 4.3 mmol/L (3.5-5.5); Sodium, Blood 142.0 mmol/L (136-145)
[2025-02-28 07:58] VITALS: BP 164/63
[2025-02-28 11:31] VITALS: BP 133/49
--- NOTE | 2025-02-28 18:49 | NUR ---
END OF SHIFT SUMMARY: A&Ox4. PLEASANT AND COOPERATIVE WITH CARE. CALLS APPROPRIATELY AND IS ABLE TO ADVOCATE NEEDS EFFECTIVELY. VSS. TELE STRIP IN CHART REVIEWED AND INTERPRETED SINUS c BBB & PVC @ 68. BREATHING EVEN AND UNLABORED AT REST c 2-4LPM/NC.CPAP c 5L BLEED-IN WHILE SLEEPING. MAINTAINING SPO2 >92% WHILE AWAKE PER CONTINUOUS PULSE OX; NOTED TO DESAT WHEN DOZING AND NOT WEARING CPAP. CONTINENT OF BOWEL. PUREWICK IN PLACE TO MAINTAIN DIGNITY AND PROMOTE SKIN INTEGRITY SECONDARY TO URGE INCONTINENCE AND LIMITED MOBILITY. TOLERATING DIET. CONTINUES c PRODUCTIVE COUGH FOR WHICH SHE SELF-SUCTIONS. LIFT PATIENT. DID NOT GET UP TO CHAIR x2 MEALS, BUT ENCOURAGED TO DANGLE FOR DINNER. ABLE TO PULL SELF UP IN BED IF STAFF ASSIST c LYING BED DOWN. MEDS WHOLE c FLUIDS. BLOOD SUGAR THIS EVENING WAS >250. NO INSULIN ORDERED AND STATES SHE DOES NOT TYPICALLY TAKE INSULIN AT NIGHT. WILL RECHECK AND NOTIFY PROVIDER IF ELEVATED. NO NEW ORDERS AT THIS TIME. BED IN LOWEST POSITION, CALL LIGHT WITHIN REACH, ALL NEEDS MET. REPORT TO ONCOMING NURSE.
[2025-02-28 19:28] VITALS: BP 128/74
[2025-02-28 23:52] VITALS: BP 120/64
[2025-03-01] VITALS (7 sets, daily range): BP systolic 104–157; BP diastolic 56–82
[2025-03-01 05:05] LABS: BASOPHILS ABSOLUTE AUTO 0.03 K/mm3 (0.00-0.23); BASOPHILS PERCENT AUTO 1 % (0-2); EOSINOPHILS ABSOLUTE AUTO 0.15 K/mm3 (0.00-0.68); EOSINOPHILS PERCENT AUTO 3 % (0-6); Hematocrit 40.9 % (33.0-51.0); Hemoglobin 12.4 g/dL (11.5-16.0); IMMATURE GRAN ABSOLUTE AUTO 0.05 K/mm3 (0.00-0.10); IMMATURE GRAN PERCENT AUTO 1 % (0-1); LYMPHOCYTES ABSOLUTE AUTO 1.27 K/mm3 (0.84-5.20); LYMPHOCYTES PERCENT AUTO 26 % (21-46); MONOCYTES ABSOLUTE AUTO 0.39 K/mm3 (0.16-1.47); MONOCYTES PERCENT AUTO 8 % (4-13); Mean Corpuscular HGB Conc 30.3 g/dL (31.5-36.5); Mean Corpuscular Volume 103 fL (80-100); NEUTROPHILS ABSOLUTE AUTO 2.97 K/mm3 (1.96-9.15); NEUTROPHILS PERCENT AUTO 61 % (41-73); NRBC ABSOLUTE 0.00 K/mm3 (0.00-0.02); NRBC Auto 0.0 /100 WBC (0.0-0.2); Platelet Count 131 K/mm3 (150-400); RDW Coefficient Variation 12.2 % (11.7-14.2); RDW Standard Deviation 45.6 fL (35.1-46.3)
[2025-03-01 05:43] LABS: Anion Gap 4.0 mmol/L (3-11); Blood Urea Nitrogen 22.0 mg/dL (8-24); CO2, Blood 38.0 mmol/L (21-32); Calcium, Blood 9.3 mg/dL (8.5-10.1); Chloride, Blood 102.0 mmol/L (98-108); Creatinine, Blood 1.18 mg/dL (0.40-1.00); Glucose, Blood 89.0 mg/dL (70-99); Potassium, Blood 4.3 mmol/L (3.5-5.5); Sodium, Blood 140.0 mmol/L (136-145)
--- NOTE | 2025-03-01 06:02 | NUR ---
Shift Summary Pt taken to CT for PE study early in the shift, transferred using lift. Her lungs were wheezy upon return, I called RT who administered PRN breating treatment. Pt on BiPap t/o the night with 4L O2 bleed in, SPO2 ranging from 89-96 while alseep. Purewick in place for voids. Pt slept well t/o the night. She is AOx4, calls appropriatly. Pt on Tele running SR w/ BBB and PVCs, no events.
--- NOTE | 2025-03-01 18:01 | NUR ---
SHIFT SUMMARY: PATIENT A+O X4 AND ABLE TO MAKE NEEDS KNOWN. PATIENT REMAINS A LIFT PATIENT AT THIS TIME. PATIENT MEDICATED FOR PAIN PER EMAR, SEE FOR DETAILS. PLAN TO GO TO SNF WHEN ACCEPTED. PATIENTS OXYGEN DEMAND HAS IMPROVED FROM THIS AM. PATIENT WAS 4L VIA NC THIS MORNING AND NOW IS ON 2L. PLAN OF CARE ONGOING AT THIS TIME, WILL CONTINUE TO MONITOR.
[2025-03-01 22:54] LABS: SARS-Cov-2 (COVID-19) PCR, MMC NEGATIVE (NEGATIVE)
[2025-03-01] MEDS ORDERED: Piperacillin/Tazobactam Sod 4.5 GM in NS 100 ML IV SCH (23:00)
[2025-03-02] VITALS (8 sets, daily range): BP systolic 106–179; BP diastolic 49–98
--- NOTE | 2025-03-02 06:32 | NUR ---
Shift Summary Multiple calls from telemetry this shift. Early on tele was showing ST elevation, I called the hospitalist who ordered EKG and Nitro if pt was having chest pain. Pt told charge nurse she was having chest pain but when I brought in the SL nitro she said she not had chest pain tonight and was not currently having any. Later tele called me twice about 2 second sinus pauses an hour apart. Then late in the shift tele called that pt was in sinus kim 36-39 for 8 seconds twice an hour apart. Pt asymptomatic on all episodes. When pt first fell asleep without BiPaP she desatted to low 80's, I placed BiPaP on and pt was not improving. I called RT who helped me adjust the mask and settings. For a while pt had very low tidal volume 30-300 and minute volume of 3-5. We had to position her sitting up just right and make sure the mask fit was very good before her breathing stabalized. During this time pt was lethargic and somnolent althouh she could be aroused and answer questions but would fall back to sleep quickly. After this there were no further respitory/SPO2 issues and she slept well t/o the rest of the night with BiPaP on.
[2025-03-02 09:44] LABS: BASOPHILS ABSOLUTE AUTO 0.03 K/mm3 (0.00-0.23); BASOPHILS PERCENT AUTO 1 % (0-2); EOSINOPHILS ABSOLUTE AUTO 0.15 K/mm3 (0.00-0.68); EOSINOPHILS PERCENT AUTO 4 % (0-6); Hematocrit 43.8 % (33.0-51.0); Hemoglobin 13.4 g/dL (11.5-16.0); IMMATURE GRAN ABSOLUTE AUTO 0.03 K/mm3 (0.00-0.10); IMMATURE GRAN PERCENT AUTO 1 % (0-1); LYMPHOCYTES ABSOLUTE AUTO 0.99 K/mm3 (0.84-5.20); LYMPHOCYTES PERCENT AUTO 26 % (21-46); MONOCYTES ABSOLUTE AUTO 0.29 K/mm3 (0.16-1.47); MONOCYTES PERCENT AUTO 8 % (4-13); Mean Corpuscular HGB Conc 30.6 g/dL (31.5-36.5); Mean Corpuscular Volume 103 fL (80-100); NEUTROPHILS ABSOLUTE AUTO 2.38 K/mm3 (1.96-9.15); NEUTROPHILS PERCENT AUTO 61 % (41-73); NRBC ABSOLUTE 0.00 K/mm3 (0.00-0.02); NRBC Auto 0.0 /100 WBC (0.0-0.2); RDW Coefficient Variation 12.3 % (11.7-14.2); RDW Standard Deviation 46.3 fL (35.1-46.3)
[2025-03-02 10:03] LABS: Anion Gap 4.0 mmol/L (3-11); Blood Urea Nitrogen 23.0 mg/dL (8-24); CO2, Blood 39.0 mmol/L (21-32); Calcium, Blood 8.9 mg/dL (8.5-10.1); Chloride, Blood 102.0 mmol/L (98-108); Creatinine, Blood 1.13 mg/dL (0.40-1.00); Glucose, Blood 112.0 mg/dL (70-99); Potassium, Blood 4.0 mmol/L (3.5-5.5); Sodium, Blood 141.0 mmol/L (136-145)
[2025-03-02 10:25] LABS: Platelet Count 117 K/mm3 (150-400)
[2025-03-02 13:10] LABS: pH Blood Venous 7.33 (7.34-7.37)
--- NOTE | 2025-03-02 13:40 | NUR ---
NURSING NOTE: DR. BELL IN ROOM WITH THIS NURSE PRESENT AND DISCUSSED LETHARGY AND DROWSINESS. VBG RESULTS CALLED BACK TO DR. BELL AND PATIENT PLACED ON BI-PAP. THIS NURSE OBSERVED SIGNIFICANT CHANGE IN PATIENT MENTATIONAL STATUS PRIOR TO BI-PAP. DURING THE DAY PATIENT IS ON 4L VIA NC. PLAN FOR ANOTHER VBG WITHIN THE HOUR WITH BI-PAP ON.
--- NOTE | 2025-03-02 16:08 | NUR ---
PT ARRIVED TO UNIT @ 1556 VIA BED FROM [facility] FLOOR. SHE WAS PLACED ON THE BIPAP W/3L O2 BLED IN. LAB CAME AND BRADY REPEAT VBG. BED IN LOW POSITION, CALL LIGHT AND PERSONAL BELONGINGS IN REACH.
[2025-03-02 16:25] LABS: BASOPHILS ABSOLUTE AUTO 0.03 K/mm3 (0.00-0.23); BASOPHILS PERCENT AUTO 1 % (0-2); EOSINOPHILS ABSOLUTE AUTO 0.12 K/mm3 (0.00-0.68); EOSINOPHILS PERCENT AUTO 3 % (0-6); Hematocrit 42.7 % (33.0-51.0); Hemoglobin 12.9 g/dL (11.5-16.0); IMMATURE GRAN ABSOLUTE AUTO 0.01 K/mm3 (0.00-0.10); IMMATURE GRAN PERCENT AUTO 0 % (0-1); LYMPHOCYTES ABSOLUTE AUTO 1.07 K/mm3 (0.84-5.20); LYMPHOCYTES PERCENT AUTO 28 % (21-46); MONOCYTES ABSOLUTE AUTO 0.41 K/mm3 (0.16-1.47); MONOCYTES PERCENT AUTO 11 % (4-13); Mean Corpuscular HGB Conc 30.2 g/dL (31.5-36.5); Mean Corpuscular Volume 104 fL (80-100); NEUTROPHILS ABSOLUTE AUTO 2.18 K/mm3 (1.96-9.15); NEUTROPHILS PERCENT AUTO 57 % (41-73); NRBC ABSOLUTE 0.00 K/mm3 (0.00-0.02); NRBC Auto 0.0 /100 WBC (0.0-0.2); Platelet Count 119 K/mm3 (150-400); RDW Coefficient Variation 12.4 % (11.7-14.2); RDW Standard Deviation 47.2 fL (35.1-46.3)
--- NOTE | 2025-03-02 16:41 | NUR ---
[id number]: 1300 PATIENT STARTED SHOWING S/S OF INCREASED DROWSINESS, CYANOTIC COLORING OF THE FINGER TIPS, LETHARGY, AND WAS CLAMY. DR. BELL WAS PRESENT IN THE ROOM WITH THIS PRODUCER DIRECTOR DURING THIS INTERACTION. PATIENT PLACED ON BI-PAP AND STAT VBG ORDERED. @1330 PATIENT STARTED CLEARING UP AND VERBALIZED "NOT REMEMBERING THE INTERACTION WITH YOU OR THE DOCTOR". @1430 PATIENT WAS NOTED TO GO BACK INTO A DROWSY STATE. DURING THIS INTERACTION V/S WERE TAKEN. BP: 110/49, PULSE: 35. TELEMETRY NOTIFIED THIS PRODUCER DIRECTOR OF SIGNIFICANT CHANGES AND POSSIBLE DROPPING(S) OF A "P" WAVE. STAT EKG PERFORMED AND DR. BELL NOTIFIED. @1544 ADVISED THIS PRODUCER DIRECTOR TO STAT ORDER A REPEAT VBG AND PROCEED TO PUT THE PATIENT ON V-60. CHARGES NOTIFIED OF CHANGES WITHIN PATIENTS PRESENTING STATUS. IN HOUSE TRANFER TO [facility] 07 WAS VERBALLY ORDERED OVER THE PHONE BY DR. BELL. PATIENT BELONGINGS SENT WITH PATIENT ALONG WITH CHART. BEDSIDE REPORT COMPLETED @1933.
[2025-03-02 16:46] LABS: Alanine Aminotransfer (ALT/SGP 22.0 U/L (12-78); Albumin, Blood 2.4 g/dL (3.4-5.0); Albumin/Globulin Ratio 0.6 (0.8-1.8); Anion Gap 2.0 mmol/L (3-11); Aspartate Aminotrans (AST/SGOT 18.0 U/L (12-37); Bilirubin, Total 0.6 mg/dL (0.1-1.0); Blood Urea Nitrogen 23.0 mg/dL (8-24); CO2, Blood 39.0 mmol/L (21-32); Calcium, Blood 9.2 mg/dL (8.5-10.1); Chloride, Blood 103.0 mmol/L (98-108); Creatinine, Blood 1.23 mg/dL (0.40-1.00); Globulin, Blood 3.7 g/dL (2.2-4.0); Glucose, Blood 92.0 mg/dL (70-99); Magnesium, Blood 1.9 mg/dL (1.6-2.4); Phosphorus, Blood 4.3 mg/dL (2.5-4.9); Potassium, Blood 4.3 mmol/L (3.5-5.5); Sodium, Blood 140.0 mmol/L (136-145); Total Protein, Blood 6.1 g/dL (6.4-8.2)
[2025-03-02 18:20] LABS: pH Blood Venous 7.51 (7.34-7.37)
--- NOTE | 2025-03-02 19:27 | NUR ---
ASSUMPTION OF CARE ASSUMED PT'S CARE AT 1900,PT SITTING UP IN BED EATING DINNER.PLAN OF CARE REVIEWED.PT ON 4L VIA NASAL CANNULA,OXYGEN SATURATION 94%.PT A&OX4,DENIES PAIN,DENIES NUMBNESS/TINGLING,DENIES NAUSEA,DENIES SOB,DENIES NEEDS AT THIS TIME.CALL LIGHT AND PT'S ITEMS WITHIN REACH.MONITORING ONGOING PER CAREPLAN.
[2025-03-03 03:45] VITALS: BP 152/66
[2025-03-03 04:28] LABS: BASOPHILS ABSOLUTE AUTO 0.03 K/mm3 (0.00-0.23); BASOPHILS PERCENT AUTO 1 % (0-2); EOSINOPHILS ABSOLUTE AUTO 0.18 K/mm3 (0.00-0.68); EOSINOPHILS PERCENT AUTO 4 % (0-6); Hematocrit 42.2 % (33.0-51.0); Hemoglobin 12.7 g/dL (11.5-16.0); IMMATURE GRAN ABSOLUTE AUTO 0.02 K/mm3 (0.00-0.10); IMMATURE GRAN PERCENT AUTO 1 % (0-1); LYMPHOCYTES ABSOLUTE AUTO 1.26 K/mm3 (0.84-5.20); LYMPHOCYTES PERCENT AUTO 30 % (21-46); MONOCYTES ABSOLUTE AUTO 0.42 K/mm3 (0.16-1.47); MONOCYTES PERCENT AUTO 10 % (4-13); Mean Corpuscular HGB Conc 30.1 g/dL (31.5-36.5); Mean Corpuscular Volume 105 fL (80-100); NEUTROPHILS ABSOLUTE AUTO 2.36 K/mm3 (1.96-9.15); NEUTROPHILS PERCENT AUTO 55 % (41-73); NRBC ABSOLUTE 0.00 K/mm3 (0.00-0.02); NRBC Auto 0.0 /100 WBC (0.0-0.2); Platelet Count 132 K/mm3 (150-400); RDW Coefficient Variation 12.3 % (11.7-14.2); RDW Standard Deviation 47.8 fL (35.1-46.3)
[2025-03-03 05:03] LABS: Alanine Aminotransfer (ALT/SGP 20.0 U/L (12-78); Albumin, Blood 2.4 g/dL (3.4-5.0); Albumin/Globulin Ratio 0.7 (0.8-1.8); Anion Gap 6.0 mmol/L (3-11); Aspartate Aminotrans (AST/SGOT 18.0 U/L (12-37); Bilirubin, Total 0.6 mg/dL (0.1-1.0); Blood Urea Nitrogen 24.0 mg/dL (8-24); CO2, Blood 36.0 mmol/L (21-32); Calcium, Blood 8.8 mg/dL (8.5-10.1); Chloride, Blood 104.0 mmol/L (98-108); Creatinine, Blood 1.22 mg/dL (0.40-1.00); Globulin, Blood 3.5 g/dL (2.2-4.0); Glucose, Blood 80.0 mg/dL (70-99); Potassium, Blood 4.0 mmol/L (3.5-5.5); Sodium, Blood 142.0 mmol/L (136-145); Total Protein, Blood 5.9 g/dL (6.4-8.2)
[2025-03-03 05:57] LABS: pH Blood Venous 7.35 (7.34-7.37)
--- NOTE | 2025-03-03 06:54 | NUR ---
PT MONITORED DURING THE SHIFT,NO ACUTE EVENTS NOTED.PT TOLERATED USE OF THE BIPAB WHILE SLEEPING.PT WIDE AWAKE THIS MORNING,DENIES PAIN,DENIES SOB,DENIES NEEDS.CALL LIGHT AND PT'S ITEMS WITHIN REACH.MONITORING ONGOING PER CAREPLAN.
[2025-03-03 07:40] VITALS: BP 141/53
[2025-03-03 11:50] VITALS: BP 118/41
[2025-03-03 15:41] VITALS: BP 113/63
--- NOTE | 2025-03-03 18:01 | NUR ---
PT IS A&Ox4 AND ABLE TO MAKE NEEDS KNOWN. SHE IS ON 2LNC WHILE AWAKE W/O2 SATS > 92% AND SHE WEARS THE BIPAP WHILE SLEEPING W/O2 SATS > 92%. SHE IS A x2 ASSIST W/FWW AND GAIT BELT FOR AMBULATION. NO C/O CHEST PAIN, PRESSURE OR SOB. NO NEEDS OR CONCERNS NOTED @ THIS TIME. SHE IS CURRENTLY SITTING UP IN THE RECLINER WATCHING TV. CALL LIGHT AND PERSONAL BELONGINGS IN REACH.
[2025-03-03 20:36] VITALS: BP 158/77
[2025-03-03 23:07] VITALS: BP 130/58
[2025-03-04 03:25] VITALS: BP 131/68
[2025-03-04 03:33] LABS: pH Blood Venous 7.59 (7.34-7.37)
[2025-03-04 03:49] LABS: BASOPHILS ABSOLUTE AUTO 0.04 K/mm3 (0.00-0.23); BASOPHILS PERCENT AUTO 1 % (0-2); EOSINOPHILS ABSOLUTE AUTO 0.15 K/mm3 (0.00-0.68); EOSINOPHILS PERCENT AUTO 3 % (0-6); Hematocrit 42.7 % (33.0-51.0); Hemoglobin 13.4 g/dL (11.5-16.0); IMMATURE GRAN ABSOLUTE AUTO 0.09 K/mm3 (0.00-0.10); IMMATURE GRAN PERCENT AUTO 2 % (0-1); LYMPHOCYTES ABSOLUTE AUTO 1.64 K/mm3 (0.84-5.20); LYMPHOCYTES PERCENT AUTO 33 % (21-46); MONOCYTES ABSOLUTE AUTO 0.43 K/mm3 (0.16-1.47); MONOCYTES PERCENT AUTO 9 % (4-13); Mean Corpuscular HGB Conc 31.4 g/dL (31.5-36.5); Mean Corpuscular Volume 102 fL (80-100); NEUTROPHILS ABSOLUTE AUTO 2.60 K/mm3 (1.96-9.15); NEUTROPHILS PERCENT AUTO 53 % (41-73); NRBC ABSOLUTE 0.00 K/mm3 (0.00-0.02); NRBC Auto 0.0 /100 WBC (0.0-0.2); Platelet Count 99 K/mm3 (150-400); RDW Coefficient Variation 12.4 % (11.7-14.2); RDW Standard Deviation 46.5 fL (35.1-46.3)
[2025-03-04 04:04] LABS: Alanine Aminotransfer (ALT/SGP 19.0 U/L (12-78); Albumin, Blood 2.4 g/dL (3.4-5.0); Albumin/Globulin Ratio 0.7 (0.8-1.8); Anion Gap 6.0 mmol/L (3-11); Aspartate Aminotrans (AST/SGOT 16.0 U/L (12-37); Bilirubin, Total 0.6 mg/dL (0.1-1.0); Blood Urea Nitrogen 27.0 mg/dL (8-24); CO2, Blood 33.0 mmol/L (21-32); Calcium, Blood 8.4 mg/dL (8.5-10.1); Chloride, Blood 106.0 mmol/L (98-108); Creatinine, Blood 1.33 mg/dL (0.40-1.00); Globulin, Blood 3.3 g/dL (2.2-4.0); Glucose, Blood 91.0 mg/dL (70-99); Potassium, Blood 4.2 mmol/L (3.5-5.5); Sodium, Blood 141.0 mmol/L (136-145); Total Protein, Blood 5.7 g/dL (6.4-8.2)
--- NOTE | 2025-03-04 06:02 | NUR ---
SHIFT SUMMARY PT IS DROWSY AT TIMES &O X 4, ABLE TO MAKE NEEDS KNOWN, MOVING ALL EXTREMITIES WITH PURPOSE/ VERY WEAK/ 3 PERSON ASSIST WITH GAIT BELT, OBEYS COMMANDS, BED ALARM ACTIVE. CONTINUOUS SPO2, SPO2 GREATER THAN 90% ON BIPAP/ BIPAP SETTING ADJUSTED THROUGHOUT THE NIGHT BY RT , LUNGS SOUND CLEAR T/O WITH DIMINISHED BASES, NO SIGNS OF RESPIRATORY DISTRESS NOTED, PT REPORT SOB WITH ACTIVITY AND WHEN SPEAKING FOR A WHILE. CONTINUOUS TELE MONITORING, SINUS HR 40-60 S, PULSES PRESENT T/O, BP STABLE WITH MAP GREATER THAN 65. BOWEL TONES PRESENT IN ALL 4Q,PT DENIES FEELINGS OF NAUSEA OR CONSTIPATION OR PAIN. PUREWICK IN PLACE CONNECTED TO LOW CONTINUOUS SUCTION, URINE YELLOW IN COLOR BED LOWEST POSITION, CALL LIGHT IN REACH, AWAITING TO GIVE REPORT TO ONCOMING RN.
[2025-03-04 08:00] VITALS: BP 117/67
[2025-03-04 08:41] LABS: pH Blood Venous 7.44 (7.34-7.37)
[2025-03-04 11:24] VITALS: BP 149/73
--- NOTE | 2025-03-04 13:26 | NUR ---
AM MEDS GIVEN WITH ORIENTATION RN FRIDA, MEDS WERE SCANNED BUT DIDN'T SAVE, CHARTED MANUALLY LATE.
[2025-03-04 15:16] VITALS: BP 152/89
--- NOTE | 2025-03-04 18:42 | NUR ---
SHIFT SUMMARY ASSUMED CARE OF PATIENT AT 0700 AFTER BED SIDE SHIFT REPORT FROM NIGHT NURSE. PATIENT ON BIPAP AND RESTING COMFORTABLY. PATIENT'S LAST VBG WAS 7.56, BIPAP REMOVED AND PATIENT PLACED ON 02 3L PER RT, PATIENT QUICKLY DESATTED AND WAS PLACED BACK ON BIPAP. PATIENT TRIED ON O2 3L NC AGAIN WHEN SHE WAS MORE AWAKE AND SUSTAINED SATS >92%. PATIENT STAYED ON O2 NC UNTIL SHE FELL ASLEEP AND WAS PLACED BACK ON BIPAP. PATIENT WAS A 2 PERSON TRANSFER WITH WALKER TO CHAIR. PATIENT IS EATING DINNER RESTING COMFORTBALY IN CHAIR ON NC 3L. O2 SATS >92%. CALL LIGHT WITH IN REACH. PURE WICK IN PLACE AND WAS CHANGED TODAY. BED BATH AND LINNEN CHANGE WELL PIV DRESSING CHANGE.
[2025-03-04 20:06] VITALS: BP 129/61
[2025-03-05] VITALS (13 sets, daily range): BP systolic 63–136; BP diastolic 51–83
[2025-03-05 05:44] LABS: BASOPHILS ABSOLUTE AUTO 0.04 K/mm3 (0.00-0.23); BASOPHILS PERCENT AUTO 1 % (0-2); EOSINOPHILS ABSOLUTE AUTO 0.15 K/mm3 (0.00-0.68); EOSINOPHILS PERCENT AUTO 3 % (0-6); Hematocrit 43.4 % (33.0-51.0); Hemoglobin 13.3 g/dL (11.5-16.0); IMMATURE GRAN ABSOLUTE AUTO 0.02 K/mm3 (0.00-0.10); IMMATURE GRAN PERCENT AUTO 1 % (0-1); LYMPHOCYTES ABSOLUTE AUTO 1.27 K/mm3 (0.84-5.20); LYMPHOCYTES PERCENT AUTO 29 % (21-46); MONOCYTES ABSOLUTE AUTO 0.37 K/mm3 (0.16-1.47); MONOCYTES PERCENT AUTO 9 % (4-13); Mean Corpuscular HGB Conc 30.6 g/dL (31.5-36.5); Mean Corpuscular Volume 102 fL (80-100); NEUTROPHILS ABSOLUTE AUTO 2.51 K/mm3 (1.96-9.15); NEUTROPHILS PERCENT AUTO 58 % (41-73); NRBC ABSOLUTE 0.00 K/mm3 (0.00-0.02); NRBC Auto 0.0 /100 WBC (0.0-0.2); Platelet Count 135 K/mm3 (150-400); RDW Coefficient Variation 12.4 % (11.7-14.2); RDW Standard Deviation 46.3 fL (35.1-46.3)
[2025-03-05 06:10] LABS: Anion Gap 4.0 mmol/L (3-11); Blood Urea Nitrogen 25.0 mg/dL (8-24); CO2, Blood 35.0 mmol/L (21-32); Calcium, Blood 9.1 mg/dL (8.5-10.1); Chloride, Blood 105.0 mmol/L (98-108); Creatinine, Blood 1.24 mg/dL (0.40-1.00); Glucose, Blood 92.0 mg/dL (70-99); Potassium, Blood 4.0 mmol/L (3.5-5.5); Sodium, Blood 140.0 mmol/L (136-145)
--- NOTE | 2025-03-05 18:26 | NUR ---
SHIFT SUMMARY; ASSUMED CARE FROM [facility] FOLLOWING ANGIO GRAM. RIGHT RADIAL TR BAND AND ARM BOARD IN PLACE. A/A/OX4, INDEPENDANT IN ROOM. PLEASANT AND COOPERATIVE WITH CARE. TR BAND RECOVERY PER PROTOCOL, NO HEMATOMA, CAP REFILL REMAINED <3, RADIAL PULSE PALPABLE. TR BAND CURRENTLY DEFLATED AND TO BE REMOVED BY ONCOMING RN AT CHANGE OF SHIFT. WILL CONTINUE TO MONITOR AND TREAT UNTIL REPORT GIVEN TO ONCOMING RN.
--- NOTE | 2025-03-05 18:32 | NUR ---
SHIFT SUMMARY ASSUMED CARE OF PATIENT AT 0700 AFTER RECIEVING SHIFT REPORT FROM NIGHT NURSE. PATIENT WAS AWAKE, ALERT AND ORIENTED X 4. PATIENT WAS ON 3 L NC AND SATS WERE >94%. PATIENT HAD SLEPT WITH HOME BIPAP OVER THE NIGHT AND TOLERATED IT WELL. PATIENT HAS BEEN UP IN CHAIR AND SATS HAVE FLUCTUATED BETWEEN 75-95% THROUGOUT SHIFT. PATIENT PLACED ON HOME BIPAP PER RT WHEN DESATTING. PATIENT IS IN CHAIR, RESTING COMFORTABLY 02 SATS >92. CALL LIGHT IS WITH IN REACH. PURE WICK IN PLACE AND DRAINING TO GRAVITY.
--- NOTE | 2025-03-05 22:24 | NUR ---
PM NOTE ASSUMED CARE OF PATIENT AT 1900; PT UP IN RECLINER WITH HOME BIPAP IN PLACE. [place] [facility]PER[place] AND TO BED SHORTLY AFTER. REPORT FROM TELE PT IN JUNCTIONAL RHYTHM, LATER REPORTED ST CHANGES. EKG SHOWING AFIB WITH SLOW VENTRICULAR RESPONSE, TROP NEGATUIVE, DR VENEGAS AT BEDSIDE, BP HYPOTENSIVE AT 63/54, 74/53, ATTEMPTED MANUAL WITH SIMILAR RESULTS; SHORTLY AFTER BP 93/55; PT DENIES SYMPTOMS. SPO2 >90% WITH BIPAP IVAPS SETTING 10-24; NO BLEED IN NOTED AT THIS TIME; LS COARSE. ABD SOFT, NONTENDER, +BT. OTHER VSS. CALL LIGHT WITHIN REACH.
[2025-03-06 04:28] VITALS: BP 110/82
--- NOTE | 2025-03-06 04:55 | NUR ---
SHIFT SUMMARY PT ON HOME BIPAP ON IVAPS SETTINGS T/O SHIFT, ONLY DESATURATED ONCE 60-80'S, WHEN BIPAP TURNED OFF WHEN DISPLACED ON FACE, RT NOTIFIED. PT BP DROPPED DURING SHIFT, [facility]. NO OTHER ACUTE CHANGES NOTED. OTHER VSS. CALL LIGHT WITHIN REACH.
[2025-03-06 06:35] LABS: BASOPHILS ABSOLUTE AUTO 0.05 K/mm3 (0.00-0.23); BASOPHILS PERCENT AUTO 1 % (0-2); EOSINOPHILS ABSOLUTE AUTO 0.15 K/mm3 (0.00-0.68); EOSINOPHILS PERCENT AUTO 3 % (0-6); Hematocrit 42.9 % (33.0-51.0); Hemoglobin 13.2 g/dL (11.5-16.0); IMMATURE GRAN ABSOLUTE AUTO 0.01 K/mm3 (0.00-0.10); IMMATURE GRAN PERCENT AUTO 0 % (0-1); LYMPHOCYTES ABSOLUTE AUTO 1.62 K/mm3 (0.84-5.20); LYMPHOCYTES PERCENT AUTO 35 % (21-46); MONOCYTES ABSOLUTE AUTO 0.45 K/mm3 (0.16-1.47); MONOCYTES PERCENT AUTO 10 % (4-13); Mean Corpuscular HGB Conc 30.8 g/dL (31.5-36.5); Mean Corpuscular Volume 102 fL (80-100); NEUTROPHILS ABSOLUTE AUTO 2.41 K/mm3 (1.96-9.15); NEUTROPHILS PERCENT AUTO 51 % (41-73); NRBC ABSOLUTE 0.00 K/mm3 (0.00-0.02); NRBC Auto 0.0 /100 WBC (0.0-0.2); Platelet Count 149 K/mm3 (150-400); RDW Coefficient Variation 12.6 % (11.7-14.2); RDW Standard Deviation 46.9 fL (35.1-46.3)
[2025-03-06 07:00] LABS: Anion Gap 6.0 mmol/L (3-11); Blood Urea Nitrogen 24.0 mg/dL (8-24); CO2, Blood 34.0 mmol/L (21-32); Calcium, Blood 9.3 mg/dL (8.5-10.1); Chloride, Blood 106.0 mmol/L (98-108); Creatinine, Blood 1.37 mg/dL (0.40-1.00); Glucose, Blood 88.0 mg/dL (70-99); Potassium, Blood 3.7 mmol/L (3.5-5.5); Sodium, Blood 142.0 mmol/L (136-145)
[2025-03-06 07:50] VITALS: BP 124/67
[2025-03-06] MEDS ORDERED: VISBIOME 112.51 EACH PO (10:43)
[2025-03-06] MEDS ORDERED: AMOCLA875 PO (10:44)
[2025-03-06 11:19] VITALS: BP 154/84
--- NOTE | 2025-03-06 12:01 | NUR ---
[facility] AT 1150.
--- NOTE | 2025-03-06 13:17 | NUR ---
DISCHARGE UPDATE PT DISCHARGED AT 1310 VIA WHEEL CHAIR AND ON RA. PT ABLE TO TRANSFER FROM RECLINER TO WHEELCHAIR WITH 2 PER ASSIST AND FWW/GB, TOLERATED WELL. DISCHARGE PACKET GIVEN TO TRANSPORT MEMBER. THIS RN RETRIEVED MEDS HELD IN PHARMACY AND PROVIDED TO TRANSPORT MEMBER.PT BIPAP PACKED AND WITH PT AT TIME OF DISCHARGE.
== END 2025-03-06 13:29 | DRG 193 ==
LOC: ER 20:16 → MEDS 22:51 → ICUE 22:51 → MEDS 02-23 15:35 → PCU 03-02 15:49
PROVIDERS: Emergency Medicine; Family Medicine; Internal Medicine; ADMIT Student in an Organized Health Care Education/Training Program
PROC: 3E03329 Introduction of Other Anti-infective into Peripheral Vein, Percutaneous Approach (ICD-10-PCS; 2025-02-22)
PROC: 5A09357 Assistance with Respiratory Ventilation, Less than 24 Consecutive Hours, Continuous Positive Airway Pressure (ICD-10-PCS; principal; 2025-02-23)
PROC: 4A033R1 Measurement of Arterial Saturation, Peripheral, Percutaneous Approach (ICD-10-PCS; 2025-02-23)
DX: J18.9 Pneumonia, unspecified organism (principal); G92.8 Other toxic encephalopathy; J96.21 Acute and chronic respiratory failure with hypoxia; I21.A1 Myocardial infarction type 2; J96.22 Acute and chronic respiratory failure with hypercapnia; N17.9 Acute kidney failure, unspecified; Z68.43 Body mass index [BMI] 50.0-59.9, adult; J44.1 Chronic obstructive pulmonary disease with (acute) exacerbation; J44.0 Chronic obstructive pulmonary disease with (acute) lower respiratory infection; E03.9 Hypothyroidism, unspecified; E78.00 Pure hypercholesterolemia, unspecified; K21.9 Gastro-esophageal reflux disease without esophagitis; G47.33 Obstructive sleep apnea (adult) (pediatric); E27.8 Other specified disorders of adrenal gland; E66.01 Morbid (severe) obesity due to excess calories; N18.30 Chronic kidney disease, stage 3 unspecified; E11.22 Type 2 diabetes mellitus with diabetic chronic kidney disease; I12.9 Hypertensive chronic kidney disease with stage 1 through stage 4 chronic kidney disease, or unspecified chronic kidney disease; Z99.3 Dependence on wheelchair; F32.A Depression, unspecified; M19.90 Unspecified osteoarthritis, unspecified site; E11.42 Type 2 diabetes mellitus with diabetic polyneuropathy; Z90.89 Acquired absence of other organs; Z98.890 Other specified postprocedural states; Z87.891 Personal history of nicotine dependence; Z88.8 Allergy status to other drugs, medicaments and biological substances; Z79.899 Other long term (current) drug therapy
CPT/HCPCS: 0202U; 36415; 36600; 70450; 71045; 71046; 71260; 76770; 80048; 80053; 82803; 82947; 83605; 83735; 83880; 84100; 84145; 84484; 85025; 85379; 87040; 92610; 93005; 93010; 93306; 94640; 94660; 94664; 94761; 94762; 96365; 96367; 97110; 97162; 97530; 99285-25; A9270; J0456; J0696; J1650; J2543; J3373; J7040; J7050; J7120; Q9967; U0002